=== PATIENT | male | born 1945 | race Caucasian/White ===

== ENCOUNTER → 2019-07-12 09:29 | Outpatient (CLI) | payer MEDICARE, SELFPAY ==
[2017-06-10 17:05] VITALS: BMI 29.2
[2019-07-12 11:13] LABS: Anion Gap 4 (5-15); BUN 18 mg/dL (7-18); BUN/Creat Ratio 15.8 RATIO (10-20); Calcium,Total 8.8 mg/dL (8.5-10.1); Chloride 105 mmol/L (98-107); Cholesterol 189 mg/dL (200); Creatinine, Serum 1.14 mg/dL (0.70-1.30); EST Glomerular Filtration Rate 67 mL/min (>60); Est Glom Filt Rate - Afr Amer 81 mL/min (>60); Glucose 98 mg/dL (74-106); High Density Lipoprotein 42 mg/dL; PSA,Total - Annual Screen 1.65 ng/mL (0.00-4.00); Potassium 3.7 mmol/L (3.5-5.1); Sodium Level 140 mmol/L (136-145); Triglycerides 110 mg/dL; Very Low Density Lipoprotein 22 mg/dL (5-40)
== END ==
PROVIDERS: Family Provider Family Medicine; PCP Family Medicine; Referring Provider Family Medicine; Visit Provider Family Medicine
DX: I10 Essential (primary) hypertension (principal); Z12.5 Encounter for screening for malignant neoplasm of prostate
CPT/HCPCS: 36415; 80048; 80061; 84153; G0103

== ENCOUNTER → 2020-08-09 09:48 | Outpatient (CLI) | payer MEDICARE, SELFPAY ==
[2017-06-10 17:05] VITALS: BMI 29.2
[2020-08-09 12:48] LABS: Anion Gap 4 (5-15); BUN 15 mg/dL (7-18); Calcium,Total 8.9 mg/dL (8.5-10.1); Chloride 105 mmol/L (98-107); Cholesterol 189 mg/dL (200); Creatinine, Serum 1.07 mg/dL (0.70-1.30); EST Glomerular Filtration Rate 72 mL/min (>60); Est Glom Filt Rate - Afr Amer 87 mL/min (>60); Glucose 88 mg/dL (74-106); High Density Lipoprotein 44 mg/dL; Potassium 3.6 mmol/L (3.5-5.1); Sodium Level 141 mmol/L (136-145); Triglycerides 88 mg/dL; Very Low Density Lipoprotein 18 mg/dL (5-40)
== END ==
PROVIDERS: PCP Family Medicine; Referring Provider Family Medicine; Visit Provider Family Medicine
DX: I10 Essential (primary) hypertension (principal); Z12.5 Encounter for screening for malignant neoplasm of prostate; L57.0 Actinic keratosis
CPT/HCPCS: 36415; 80048; 80061; 84153; 88305; G0103

== ENCOUNTER → 2020-08-09 15:11 | Outpatient (CLI) | payer MEDICARE, SELFPAY ==
--- NOTE | 2020-08-09 10:30 | LES_PTH ---
PATIENT: LYNN TOURE Jr. LOC: [facility] U#:[id number] AGE/SX: 79/M ROOM: RE08/09/[address]: Dr. Dakota Savage MD : 1945 BED: DIS: SPEC #: [id number] RECD: 08/09/20 14:55 STATUS: SIDDHARTH ADÁN #: [id number] FÉLIX: 08/09/20 10:[address]: Dakota Savage DEPT: SURGICAL PATHOLOGY RECD BY: Sarita Majano Tissues: Skin of chest Procedures: Surgery Specimen Level IV HEADER OPERATION: Skin biopsy of chest PRE-OP DIAGNOSIS: Rule out melanoma TISSUE SUBMITTED: Chest skin lesion MICROSCOPIC DIAGNOSIS Chest skin lesion, shave biopsy: Actinic keratosis with moderate atypia and focal verrucous features. Solar elastosis. Negative for malignancy. See comment. DONN:marcus 08/11/2020 COMMENT Melanocytic lesion is not seen. Correlation with clinical findings and appropriate follow up are necessary. MICROSCOPIC DESCRIPTION Slides are reviewed. GROSS DESCRIPTION Received in fixative is one container labeled with the patient's name and designated chest lesion. The specimen consists of a shave biopsy of strong-white to light brown skin measuring 1.5 x 1 x 0.1 cm. The specimen is inked and submitted entirely in one cassette. It will be sectioned at the time of embedding. / SJ:rg 08/10/20 TC:5 CPT: 17307
== END ==
PROVIDERS: PCP Family Medicine; Visit Provider Family Medicine
DX: L57.0 Actinic keratosis (principal)
CPT/HCPCS: 88305

== ENCOUNTER → 2020-09-21 15:42 | Outpatient (CLI) | payer MEDICARE, SELFPAY ==
[2017-06-10 17:05] VITALS: BMI 29.2
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
== END ==
PROVIDERS: PCP Family Medicine; Referring Provider Family Medicine; Visit Provider Family Medicine
DX: M79.641 Pain in right hand (principal)
CPT/HCPCS: 73130

== ENCOUNTER → 2020-11-16 15:18 | Outpatient (CLI) | payer MEDICARE, SELFPAY ==
--- NOTE | 2020-11-16 15:21 | US_ITS ---
INDICATION: L TESTICULAT SWELLING EXAMINATION: US Scrotum (Contents) TECHNIQUE: Realtime ultrasound of the testicles was performed with grayscale, Color Doppler and spectral Doppler analysis. COMPARISON: None. FINDINGS: RIGHT: TESTIS: Measures 3.4 x 2.9 x 2.1 cm. Normal in size and echotexture, without focal lesion. COLOR DOPPLER: Normal arterial flow present in the testicle with monophasic waveforms. EPIDIDYMIS: Normal in size and echotexture, with a 5 mm epididymal head cyst. [Normal color Doppler flow pattern in the epididymis. HYDROCELE: Small hydrocele.. VARICOCELE: None. LEFT: TESTIS: Measures 6 x 3 x 2.8 cm. Enlarged with normal echotexture, without focal lesion. COLOR DOPPLER: Normal arterial flow present in the testicle with monophasic waveforms. EPIDIDYMIS: Normal in size and echotexture, with a 6 mm epididymal head cyst. [Normal color Doppler flow pattern in the epididymis. HYDROCELE: None. VARICOCELE: None. OTHER: Large 6.2 cm scrotal fluid collection with low level internal echoes and a few septations consistent with spermatocele. 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 Enlarged left testicle with otherwise normal appearance and vascularity. Small bilateral epididymal head cysts. Electronically Signed: Dakota Chadwick MD at 16:35 EDT Tel , Service support ,
== END ==
PROVIDERS: PCP Family Medicine; Referring Provider Family Medicine; Visit Provider Family Medicine
DX: N50.89 Other specified disorders of the male genital organs (principal)
CPT/HCPCS: 76870; 93976

== ENCOUNTER → 2020-11-30 15:12 | Outpatient (CLI) | payer MEDICARE, SELFPAY ==
[2020-11-30 17:24] LABS: Hematocrit 34.8 % (40-54); Hemoglobin 11.8 g/dL (13.0-16.5); Mean Corp Hgb Conc 33.9 g/dL (32-36); Mean Corpuscular Hgb 32.3 pg (27.0-32.0); Mean Corpuscular Volume 95.3 fL (80-94); Mean Platelet Vol. 10.1 fl (6.2-12.0); POSITIVE MORPHOLOGY YES; Platelet Count 319 K/mm3 (150-450); RBC Distribution Width CV 18.6 % (11.6-14.6); RBC Distribution Width SD 65.1 fl (35.1-43.9); Red Blood Count 3.65 M/mm3 (4.6-6.2); White Blood Count 6.3 K/mm3 (4.4-11.0)
[2020-11-30 17:32] LABS: Scan Indicated on CBC? Y/N YES- FLAGS NOTED
[2020-11-30 17:58] LABS: Differential Comment SEE COMMENTS
[2020-11-30 18:04] LABS: Anion Gap 6 (5-15); BUN 19 mg/dL (7-18); BUN/Creat Ratio 18.8 RATIO (10-20); Calcium,Total 8.7 mg/dL (8.5-10.1); Chloride 103 mmol/L (98-107); Creatinine, Serum 1.01 mg/dL (0.70-1.30); EST Glomerular Filtration Rate 77 mL/min (>60); Est Glom Filt Rate - Afr Amer 93 mL/min (>60); Glucose 80 mg/dL (74-106); Potassium 3.6 mmol/L (3.5-5.1); Sodium Level 141 mmol/L (136-145)
== END ==
PROVIDERS: PCP Family Medicine; Visit Provider Urology
DX: Z01.812 Encounter for preprocedural laboratory examination (principal)
CPT/HCPCS: 36415; 80048; 85027

== ENCOUNTER → 2020-12-06 09:06 | Outpatient (CLI) | payer MEDICARE, SELFPAY ==
--- NOTE | 2020-12-06 09:16 | EKG12_ITS ---
Test Reason : PREOP Blood Pressure : / mmHG Vent. Rate : 074 BPM Atrial Rate : 074 BPM P-R Int : 130 ms QRS Dur : 084 ms QT Int : 378 ms P-R-T Axes : 007 -08 081 degrees QTc Int : 419 ms Normal sinus rhythm Normal ECG Confirmed by OLIVIA HUDSON, BRAD ([id number]), editor publications THERESE VICENTE ([id number]) on 12/08/2020 8:08:31 AM Referred By: aRmiro Andrew Confirmed By:BRAD BAKER MD
== END ==
PROVIDERS: PCP Family Medicine; Referring Provider Urology; Visit Provider Urology
DX: Z01.812 Encounter for preprocedural laboratory examination (principal); I10 Essential (primary) hypertension
CPT/HCPCS: 93005

== ENCOUNTER 2021-07-31 10:06 | Outpatient (CLI) | payer MEDICARE, SELFPAY ==
[2021-07-31 12:55] LABS: Anion Gap 5 (5-15); BUN 13 mg/dL (7-18); BUN/Creat Ratio 13.2 RATIO (10-20); Calcium,Total 8.8 mg/dL (8.5-10.1); Chloride 105 mmol/L (98-107); Cholesterol 191 mg/dL (200); Creatinine, Serum 0.99 mg/dL (0.70-1.30); EST Glomerular Filtration Rate 79 mL/min (>60); Est Glom Filt Rate - Afr Amer 95 mL/min (>60); Glucose 104 mg/dL (74-106); High Density Lipoprotein 51 mg/dL; PSA,Total - Annual Screen 1.84 ng/mL (0.00-4.00); Potassium 3.9 mmol/L (3.5-5.1); Sodium Level 140 mmol/L (136-145); Triglycerides 88 mg/dL; Very Low Density Lipoprotein 18 mg/dL (5-40)
== END 2021-07-31 23:59 | disposition short-term general hospital (02) ==
LOC: MFPLAB 10:10
PROVIDERS: PCP Family Medicine; Referring Provider Family Medicine; Visit Provider Family Medicine
DX: Z12.5 Encounter for screening for malignant neoplasm of prostate (principal); I10 Essential (primary) hypertension
CPT/HCPCS: 36415; 80048; 80061; 84153; G0103

== ENCOUNTER → 2022-08-01 | Outpatient (CLI) | payer MEDICARE, SELFPAY ==
[2022-08-01 15:25] LABS: Anion Gap 8 (5-15); BUN 13 mg/dL (7-18); BUN/Creat Ratio 13.7 RATIO (10-20); Calcium,Total 8.8 mg/dL (8.5-10.1); Chloride 105 mmol/L (98-107); Creatinine, Serum 0.95 mg/dL (0.70-1.30); EST Glomerular Filtration Rate 82 mL/min (>60); Est Glom Filt Rate - Afr Amer 99 mL/min (>60); Glucose 89 mg/dL (74-106); Potassium 3.7 mmol/L (3.5-5.1); Sodium Level 142 mmol/L (136-145)
[2022-08-01 16:30] LABS: Hepatitis C Antibody Non-Reactive (Nonreactive)
== END | disposition home or self-care (01) ==
LOC: MFPLAB 11:35
PROVIDERS: PCP Family Medicine; Referring Provider Family Medicine; Visit Provider Family Medicine
DX: Z11.59 Encounter for screening for other viral diseases (principal); I10 Essential (primary) hypertension
CPT/HCPCS: 36415; 80048; 86803

== ENCOUNTER → 2023-01-29 | Outpatient (CLI) | payer MEDICARE, SELFPAY ==
--- NOTE | 2023-01-29 10:47 | RAD_ITS ---
STUDY: X-RAY - RIGHT WRIST REASON FOR EXAM: Male, 77 years old. Right wrist pain. TECHNIQUE: 3 view(s) of the wrist were obtained. COMPARISON: Right hand views dated September 21, 2020. FINDINGS: Osteopenia. Mild arthrosis of the radiocarpal articulation. Mild arthrosis of the distal radioulnar articulation. Moderate arthrosis of the radial carpal row. Moderate arthrosis of the first CMC joint. Moderate arthrosis of the visualized MCP joints. Normal soft tissues. RAD/Wrist min 3 Views IMPRESSION: Osteopenia with osteoarthritic changes as described. No acute abnormality, chondrocalcinosis or erosive changes. Electronically Signed: Michael Meeks MD at 9:26 EDT ,
== END | disposition home or self-care (01) ==
PROVIDERS: PCP Family Medicine; Referring Provider Family Medicine; Visit Provider Family Medicine
DX: M25.531 Pain in right wrist (principal)
CPT/HCPCS: 73110

== ENCOUNTER → 2024-02-05 | Outpatient (CLI) | payer MEDICARE, SELFPAY ==
[2024-02-05 10:26] LABS: Anion Gap 4 (5-15); BUN 15 mg/dL (7-18); BUN/Creat Ratio 16.2 RATIO (10-20); Calcium,Total 8.8 mg/dL (8.5-10.1); Chloride 107 mmol/L (98-107); Cholesterol 179 mg/dL (200); Creatinine, Serum 0.93 mg/dL (0.70-1.30); EST Glomerular Filtration Rate 84 mL/min (>60); Est Glom Filt Rate - Afr Amer 101 mL/min (>60); Glucose 93 mg/dL (74-106); High Density Lipoprotein 42 mg/dL; Potassium 3.8 mmol/L (3.5-5.1); Sodium Level 141 mmol/L (136-145); Triglycerides 97 mg/dL; Very Low Density Lipoprotein 19 mg/dL (5-40)
== END | disposition home or self-care (01) ==
LOC: MFPLAB 08:03
PROVIDERS: PCP Family Medicine; Visit Provider Family Medicine
DX: I10 Essential (primary) hypertension (principal)
CPT/HCPCS: 36415; 80048; 80061

== ENCOUNTER → 2025-02-11 | Outpatient (CLI) | payer MEDICARE, SELFPAY ==
--- OUTSIDE RECORDS SUMMARY | 2025-02-11 08:11 | XMS RPT_ITS | CCD ---
Author Organization [facility] Inform ion Partnership [facility] Care Team Providers Care Director Of Customer Acquisition Name Role Phone TOBI BELLA Unavailable Unavailable TOBI BELLA Unavailable TOBI BELLA Attending Unavailable TOBI BELLA Primary Care Unavailable TOBI BELLA Attending Unavailable TOBI BELLA Primary Care Unavailable Dakota Savage Attending Unavailable Dakota Savage Primary Care Unavailable Allergies Allergy Classification Reported Allergen(s) Allergy Type Date of Onset Reaction(s) [facility] (1 source) [place] Drug Allergy 2017 [facility] Repository Medications Current Medications Medication Drug Class(es) Dates Sig (Normalized) Sig (Original) acetaminophen 500 mg oral tablet (2 sources) Start: 06-12-2017 take 1000 mg by mouth every eight hours Acetaminophen Active 1000 MG PO EVERY 8 HOURS June 12, 2017 12:00am Start: 05-19-2017 End: 06-12-2017 take 500-1000 mg by mouth every six hours as needed Acetaminophen Discontinued 500 - 1000 MG PO EVERY 6 HOURS NEEDED May 19, 2017 12:00am June 12, 2017 1:00pm aspirin 325 mg oral tablet (1 source) Platelet Aggregation Inhibitor, Nonsteroidal Anti-inflammatory Drug Start: 06-12-2017 take 325 mg by mouth twice daily at mealtime Aspirin Active 325 MG PO TWICE DAILY WITH MEALS June 12, 2017 12:00am citalopram 20 mg oral tablet (1 source) Serotonin Reuptake Inhibitor Start: 11-18-2014 take 10 mg by mouth once daily Citalopram Active 10 MG PO DAILY November 17, 2014 11:00pm hydroCHLOROthiazide 25 mg oral tablet (1 source) Thiazide Diuretic Start: 05-19-2017 take 25 mg by mouth once daily Hydrochlorothiazide Active 25 MG PO DAILY May 19, 2017 12:00am oxyCODONE hydrochloride 5 mg oral tablet (1 source) Opioid Agonist Start: 06-12-2017 take 5-10 mg by mouth every four hours as needed Oxycodone Active 5 - 10 MG PO EVERY 4 HOURS NEEDED 60 June 12, 2017 12:00am valsartan 160 mg oral tablet (1 source) Angiotensin 2 Receptor Pito Start: 05-19-2017 take 160 mg by mouth once daily Valsartan Active 160 MG PO DAILY May 19, 2017 12:00am Completed/Discontinued Medications Medication Drug Class(es) Dates Sig (Normalized) Sig (Original) traMADol hydrochloride 50 mg oral tablet (1 source) Opioid Agonist Start: 11-18-2014 End: 06-12-2017 take 50 mg by mouth every six hours as needed Tramadol Discontinued 50 MG PO EVERY 6 HOURS NEEDED November 17, 2014 11:00pm June 12, 2017 12:59pm Problems Active Problems Problem Classification Problem Date Documented Da te Episodic/Chronic Essential hypertension (1 source) Essential (primary) hypertension; Translations: [Essential (primary) hypertension] Onset: 03-05-2024 Chronic Neoplasms of unspecified nature or uncertain behavior (2 sources) Neoplasm of uncertain behavior of skin; Translations: [Neoplasm of uncertain behavior of skin] Onset: 08-25-2018 Episodic Unclassified (1 source) Unknown / UNK(Unknown) Onset: 01-06-2017 Past or Other Problems Problem Classification Problem Date Documented Da te Episodic/Chronic Unclassified (1 source) RT WRIST PAIN Onset: 01-06-2017 Results Test Name Value Interpretation Reference Range Facility Basic Metabolic Profile (BMP )on 02-05-2024 BUN/CRE 16.2 RATIO Normal - [facility] Comment on above: Performed By: #### L 500.2500, L500.4100 #### [facility] [address] [place], [address] CA,Total 8.8 mg/dL Normal 8.5-10.1 [facility] Comment on above: Performed By: #### L 500.2500, L500.4100 #### [facility] [address] [place], [address] Chloride [Moles/Vol] 107 mmol/L Normal 98-107 [facility] Comment on above: Performed By: #### L 500.2500, L500.4100 #### [facility] [address] [place], [address] CO2 [Moles/Vol] 30.0 mmol/L Normal 21.0-32.0 [facility] Comment on above: Performed By: #### L 500.2500, L500.4100 #### [facility] [address] [place], [address] Creatinine [Mass/Vol] 0.93 mg/dL Normal 0.70-1.30 [facility] Comment on above: Result Comment: The validity of the calculated GFR GFRAA in patients over 70 years has not been determined. Clinical correlation is essential. Performed By: #### L 500.2500, L500.4100 #### [facility] [address] [place], [address] EST GFR - AA 101 mL/min Normal >60 [facility] Comment on above: Result Comment: Afri can Estonian GFR Calc Performed By: #### L 500.2500, L500.4100 #### [facility] [address] [place], [address] GAP 4 Low 5-15 [facility] Comment on above: Performed By: #### L 500.2500, L500.4100 #### [facility] [address] [place], [address] GFR/1.73 sq M.predicted among non-blacks MDRD (S/P/Bld) [Vol rate/Area] 84 mL/min/{1.73_m2} Normal >60 [facility] Comment on above: Result Comment: Non- GFR Calc Performed By: #### L 500.2500, L500.4100 #### [facility] [address] [place], [address] Glucose [Mass/Vol] 93 mg/dL Normal 74-106 [facility] Comment on above: Performed By: #### L 500.2500, L500.4100 #### [facility] [address] [place], [address] Potassium [Moles/Vol] 3.8 mmol/L Normal 3.5-5.1 [facility] Comment on above: Performed By: #### L 500.2500, L500.4100 #### [facility] [address] [place], [address] Sodium [Moles/Vol] 141 mmol/L Normal 136-145 [facility] Comment on above: Performed By: #### L 500.2500, L500.4100 #### [facility] [address] [place], [address] Urea nitrogen [Mass/Vol] 15 mg/dL Normal 7-18 [facility] Comment on above: Performed By: #### L 500.2500, L500.4100 #### [facility] [address] [place], [address] Lipid Profileon 02-05-2024 Cholesterol [Mass/Vol] 179 mg/dL Normal 200 [facility] Comment on above: Result Comment: <200 mg/dL Desirable 200-240 mg/dL Borderline >240 mg/dL High Risk Performed By: #### L 500.2500, L500.4100 #### [facility] [address] [place], [address] Cholesterol in HDL [Mass/Vol] 42 mg/dL Normal [facility] Comment on above: Result Comment: The drugs N-Acetylcysteine and Metamizole may falsely depress this assay. Reference Range HDL <40 mg/dL Low HDL Cholesterol HDL >or= 60 mg/dL High HDL Cholesterol Performed By: #### L 500.2500, L500.4100 #### [facility] [address] [place], [address] Cholesterol in LDL [Mass/Vol] 118 mg/dL Normal 0-130 [facility] Comment on above: Performed By: #### L 500.2500, L500.4100 #### [facility] [address] [place], [place], [address] Cholesterol in VLDL [Mass/Vol] 19 mg/dL Normal 5-40 [facility] Comment on above: Performed By: #### L 500.2500, L500.4100 #### [facility] [address] [place], [address] Triglyceride [Mass/Vol] 97 mg/dL Normal [facility] Comment on above: Result Comment: The drugs N-Acetylcysteine and Metamizole may falsely depress this assay. Serum Triglycerides Reference Interval Normal <150 mg/dL Borderline high 150 - 199 mg/dL High 200 - 499 mg/dL Very High > or = 500 mg/dL Performed By: #### L 500.2500, L500.4100 #### [facility] [address] [place], [address] Basophil percentageOrdered B y: Dr. Savage on 08-01-2022 Chloride [Moles/Vol] 105 mmol/L 98-107 [facility] Glucose [Mass/Vol] 89 mg/dL 74-106 [facility] Potassium [Moles/Vol] 3.7 mmol/L 3.5-5.1 [facility] Sodium [Moles/Vol] 142 mmol/L 136-145 [facility] Laboratory - Chemistry and C hemistry - challengeOrdered By: Dr. Savage on 08-01-2022 CO2 [Moles/Vol] 29.0 mmol/L 21.0-32.0 [facility] Urea nitrogen/Creatinine [Mass ratio] 13.7 mg/mg 10-20 [facility] No Panel InformationOrdered By: Dr. Savage on 08-01-2022 Estimated GFR (MDRD) Amer 99 mL/min >60 [facility] Comment on above: GFR Calc Estimated GFR (MDRD) Non-Af Amer 82 mL/min >60 [facility] Comment on above: Non- GFR Calc Hepatitis C Antibody Non-Reactive Nonreactive [facility] Comment on above: Non Reactive: < 0.8 Equivocal: >/= 0.8 to < 1.0 Reactive: >/= 1.0The CDC recommends that a reactive/equivocal HCV antibody result be followed up by the HCV Nucleic Acid Amplificationtest (870376) Serum or plasma calcium wilton urement (mass/volume)Ordered By: Dr. Savage on 08-01-2022 Calcium [Mass/Vol] 8.8 mg/dL 8.5-10.1 [facility] Serum or plasma creatinine m easurement (mass/volume)Ordered By: Dr. Savage on 08-01-2022 Creatinine [Mass/Vol] 0.95 mg/dL 0.70-1.30 [facility] Comment on above: The validity of the calculated GFR & GFRAA in patients over 70 years has not been determined. Clinical correlation is essential. Serum or plasma urea nitroge n measurement (mass/volume)Ordered By: Dr. Savage on 08-01-2022 Urea nitrogen [Mass/Vol] 13 mg/dL 7-18 [facility] Thin prep Papanicolaou smear with manual screeningOrdered By: Dr. Savage on 08-01-2022 Thin prep Papanicolaou smear with manual screening 8 5-15 [facility] Final Surgical Pathology Rep [facility] 08-27-2018 Final Surgical Pathology Report . Pathology Reports Accession: Collected Date/Time: Received Date/Time: Pathologist: [id number] 08/25/2018 13:50 EST 08/26/2018 14:22 EST DO DAVE LEUNG Final Surgical Pathology Report DIAGNOSIS: SKIN EXCISION, UPPER CHEST -- SOLAR LENTIGO. COMMENT: [facility] [place] [id number] CLINICAL INFORMATION: NEOPLASM OF UNCERTAIN BEHAVIOR OF SKIN SPECIMEN: A SKIN- UPPER CHEST LESION GROSS DESCRIPTION: Received in formalin labeled chest is a 0.2 cm dark brown circular skin which has been excised to a greatest depth of 0.2 cm. No discrete lesion is identified. The specimen is inked and submitted in toto in one cassette. Dictated by Izabella SHEN ([facility]) MICROSCOPIC DESCRIPTION: Slides reviewed. Electronically Signed by Pathology Report verified by [facility] Electronically signed by DAVE LEUNG DO Sign out Date: 08/27/2018 13:12 Performing Lab: [facility], [address] [place] [address] [facility] Normal [facility] ([place]) Comment on above: Performed By: #### S PFR #### [address] [address] Jamarcus 10-09-2017 Potassium molar conc 3.8 mmol/L Normal 3.5-5.1 [facility] ([place]) Comment on above: Performed By: #### K #### [facility] [address] [place], [place] [address] XR WRIST COMPLETE RIGHTon XR WRIST COMPLETE RIGHT ORIGINALXR WRIST COMPLETE RIGHT CLINICAL STATEMENT: rt wrist pain COMPARISON: None FINDINGS:3 images of the right wrist demonstrate advanced degenerative change in the radial aspect of the intercarpal joints. No fracture or dislocation is identified. The soft tissue structures are unremarkable. IMPRESSION:Focal degenerative change in the intercarpal joints Interpreted By: Monique Youngreliminary Report By: Monique Young MDElectronically Signed By: Monique Young MD Dictated Date: 01/06/2017 12:02:14 PM Prelim Date: 01/06/2017 12:02:14 PM Sign Date: 01/06/2017 12:02:38 PM Normal [facility] Encounters Encounter Date Encounter Type Care Provider Facility Start: 02-05-2024 End: 02-05-2024 [place]ulatory [facility] [place] Facility:[facility] Start: 08-01-2022 End: 08-01-2022 ambulatory [facility] Work Phone: Start: 08-01-2022 End: 08-01-2022 Patient encounter procedure [facility] Start: 08-25-2018 End: 08-30-2018 Patient encounter procedure TOBI BELLA Facility:[facility] Start: 10-09-2017 End: 10-10-2017 Patient encounter procedure TOBI BELLA Facility:[facility] Start: 01-06-2017 End: 01-07-2017 Ambulatory TOBI BELLA [facility] Immunizations Immunization Date Immunization Notes Care Provider Gato georges 03-30-2017 influenza, seasonal, injectable [facility] Payers Date Payer Category Payer Self-pay [id number] 2016 Medicare [id number] 1945 Unknown [id number] 1945 Unknown [id number] Unknown [id number] Social History Date Type Detail Facility [facility]: [facility] Start: 1945 Sex Assigned At Male [facility] Medical Equipment Procedure Code Equipment Code Equipment Origin al Text Equipment Identifier Dates COLLARLESS POROU S STEM FDA Start: 06-10-2017 MODULAR HEAD COMPONENT FDA Start: 06-10-2017 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 Start: 06-10-2017 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 FDA Start: 06-10-2017 Evaluation note Note Date & Type Note Facility Evaluation note No assessment information availa ble [facility] Work Phone: Summary Purpose Family History No Family History Records FoundNo Family History Records FoundNo Family History Records Found Advance Directives No Advanced Directives Records Found Advance Directive Response Recorded Date/ Time Advance Directives Yes November 18, 5 12:16pm Living Will Yes June 11, 017 11:13am Power of Heel Builder Yes 2017 11:13am Additional Source Comments (unrecognized sect ion and content) No Status Records FoundNo Status Records FoundNo Status Records Found INFORMATION SOURCE (unrecogn ized section and content) DATE CREATED AUTHOR 12/24/2017 [facility] [employer] [facility] DATE CREATED AUTHOR AUTHOR'S ORGANIZ ATION 08/31/2018 [facility] [employer] [facility] ([place]) DATE CREATED AUTHOR AUTHOR'S ORGANIZ ATION 03/07/2024 [facility] Care Teams (unrecognized sec tion and content) Team Status: Active Member Role Status Dates Dr. Teo Savage MD Family Provider Active Dr. Teo Savage MD Primary Care Provider Activ e Team Status: Inactive Member Role Status Dates Dr. Teo Savage MD Primary Care Provider, Attending Provider, Referring Provider Active Goals (unrecognized section and content) Goals may be documented in a n alternate section FOR RECORDS PERTAINING TO PATIENTS WHO ARE OR HAVE BEEN ENROLLED IN A CHEMICAL DEPENDENCY/SUBSTANCEABUSE PROGRAM, SOME INFORMATION MAY BE OMITTED. This clinical summary was aggregated from multiple sources. Caution should be exercised in using it in the provision of clinical care. This summary normalizes information from multiple sources, and as a consequence, information in this document may materially change the coding, format and clinical context of patient data. In addition, data may be omitted in some cases. CLINICAL DECISIONS SHOULD BE BASED ON THE PRIMARY CLINICAL RECORDS. [facility]. provides no warranty or guarantee of the accuracy or completeness of information in this document.
[2025-02-11 10:53] LABS: Anion Gap 12 (5-15); BUN 13 mg/dL (4-19); BUN/Creat Ratio 13.3 RATIO (10-20); Calcium,Total 9.2 mg/dL (7.6-11.0); Carbon Dioxide 28.2 mmol/L (21.0-32.0); Chloride 102 mmol/L (98-108); Cholesterol 165 mg/dL (<=200); Glucose 94 mg/dL (70-99); Low Density Lipoprotein Calc. 102 mg/dL; Potassium 3.6 mmol/L (3.3-5.1); Triglycerides 83 mg/dL; Very Low Density Lipoprotein 17 mg/dL (5-40); cholesterol:hdl ratio screen 3.54
== END | disposition home or self-care (01) ==
PROVIDERS: PCP Family Medicine; Referring Provider Family Medicine; Visit Provider Family Medicine
DX: I10 Essential (primary) hypertension (principal)
CPT/HCPCS: 36415; 80048; 80061

== ENCOUNTER → 2025-04-14 | Outpatient (CLI) | payer MEDICARE, SELFPAY ==
--- NOTE | 2025-04-14 11:22 | RAD_ITS ---
PROCEDURE: HIP, UNI W/ PELVIS 2-3 VIEWS 04/14/2025 REASON FOR EXAM: PAIN LEFT TECHNIQUE: Procedure Code: RADHP Modality: DX Procedure: HIP, UNI W/ PELVIS 2-3 VIEWS Laterality: Left hip COMPARISON: None FINDINGS: Bones: No fracture. Joints: Status post right total hip replacement. Moderate degree of joint space narrowing of the left hip joint. No fracture or subluxation. Soft tissues: Vascular calcifications. 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 Reading Location: [place] [address]
--- NOTE | 2025-04-14 11:22 | RAD_ITS ---
PROCEDURE: LUMBAR SPINE 2 OR 3 VIEWS 04/14/2025 REASON FOR EXAM: PAIN Low back pain and left hip pain. TECHNIQUE: Procedure Code: RADSPLL Modality: DX Procedure: LUMBAR SPINE 2 OR 3 VIEWS COMPARISON: None FINDINGS: Vertebrae: Minimal anterior spondylosis at the L2-L3 and L3-L4 levels. Discs: Mild degree of disc space narrowing at the L2-L3 level. Alignment: No significant scoliosis. Other: Atherosclerotic plaques of the abdominal aorta. RAD/Lumbar Spine 2 or 3 Views IMPRESSION: Mild degree of degenerative changes. Reading Location: [place] [address]
--- NOTE | 2025-04-14 11:22 | RAD_ITS ---
PROCEDURE: LUMBAR SPINE 2 OR 3 VIEWS 04/14/2025 REASON FOR EXAM: PAIN Low back pain and left hip pain. TECHNIQUE: Procedure Code: RADSPLL Modality: DX Procedure: LUMBAR SPINE 2 OR 3 VIEWS COMPARISON: None FINDINGS: Vertebrae: Minimal anterior spondylosis at the L2-L3 and L3-L4 levels. Discs: Mild degree of disc space narrowing at the L2-L3 level. Alignment: No significant scoliosis. Other: Atherosclerotic plaques of the abdominal aorta. RAD/Lumbar Spine 2 or 3 Views IMPRESSION: Mild degree of degenerative changes. Reading Location: [place] [address]
--- NOTE | 2025-04-14 11:22 | RAD_ITS ---
PROCEDURE: HIP, UNI W/ PELVIS 2-3 VIEWS 04/14/2025 REASON FOR EXAM: PAIN LEFT TECHNIQUE: Procedure Code: RADHP Modality: DX Procedure: HIP, UNI W/ PELVIS 2-3 VIEWS Laterality: Left hip COMPARISON: None FINDINGS: Bones: No fracture. Joints: Status post right total hip replacement. Moderate degree of joint space narrowing of the left hip joint. No fracture or subluxation. Soft tissues: Vascular calcifications. 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 Reading Location: [place] [address]
== END | disposition home or self-care (01) ==
LOC: MTRAD 11:20
PROVIDERS: PCP Family Medicine; Referring Provider Family Medicine; Visit Provider Family Medicine
DX: M54.40 Lumbago with sciatica, unspecified side (principal); M25.552 Pain in left hip
CPT/HCPCS: 72100; 73502

== ENCOUNTER 2025-04-25 13:00 | Outpatient (RCR) | payer MEDICARE, SELFPAY ==
--- NOTE | 2025-04-25 09:53 | HP.PTEVAL_ITS ---
Patient's Visit Information Visit Information Visit Information: LYNN TOURE Jr. is a 79 year old M referred to Physical Therapy by Dr. Dakota Savage MD with a diagnosis of L hip piriformis pain, lumbar DDD. Date of Evaluation: 04/22/25 Physical Therapist: Aryan Coats DPT Visit Plan Frequency: 2x /Week Duration: 4 Weeks Plan: Pt's symptoms do not exactly fall into piriformis syndrome, but also not all of his symptoms fall into lumbar radiculopathy. Pt. has high level of symptoms with walking greater than 30-50'. to the point of needing to sit down. I will try and do some flexion and piriformis stretching to see if this helps. Due to the severity of his symptoms if not improving I will suggest that he return to physician. 1) flexion stretching, L piriformis stretching Subjective Subjective: Pt. is here today for his initial evaluation with diagnosis of L piriformis pain, lumbar DDD. Pt. reports having high levels of pain for ~2 weeks. No mech of injury. Pt. reports the only position that he can get comfortable in is in his reclining chair with his L leg brought up towards his chest. Pt. reports pain that starts in his buttock that extends down his L leg to his calf. Pt. reports some N/T at lateral L calf as well. Not much back pain. Pt. reports trying some crossed legged stretching with some light relief, but no t much. He has done pain meds which did nothing, he did prednisone which also did not help. Pt. did have an Xray no recent fractures, but did show some DDD. History of R sided hip replacement. Pt. is hopeful to reduce symptoms in order to get back to all household activities without limtiations. Pain R gluteal region: Pain Intensity (Out of 10): 8 Pain Intensity Range: 6 and 10 L calf: Pain Intensity (Out of 10): 3 Pain Intensity Range: 2 and 10 Objective Objective: POSTURE: Pt. has a slight flexed posture. Pt. has slight wt. shift to R side. Pt. is able to correct posture without much change in his symptoms. PALPATION: Pt. has marked tenderness at L gluteal region, L piriformis as well. Pt. was vey tender with palpation of these areas, to the point he is severely guarding. NEURO: Pt. has decreased L lateral calf sensation. Normal DTR throughout BLEs. Pt. is able to rise on heels and toes. ROM: LUMBAR SPINE: flexion nil/min loss mild increase NW. ext mod loss increase NW, SB min loss bilat NE, rotation min loss bilat increase NW to L side. Pt. has marked HS tightness bilat. Pt. has tightness in L hip ER, normal IR. Pt. reports feeling a stretch with hip ER motions. MMT: Pt. has 5/5 distal LE strength. COre strength poor. L hip: abd 4/5 mild increase NW, ER 4/5 mild increase NW. GAIT: Pt. has severe pain with walking greater than 50'+. Pt. had to sit down several times to tolerate walking. He would have minimal pain with initial standing, but severe pain with in 30-50' requiring him to sit. Pt's pain would reduce with in a few minutes. But would return with walking. STAIRS: Pt. has marked increased pain with all attempts. Special Tests Lumbar Standing: Flexion - Mechanical Response: No effect Lumbar Standing: Flexion - Symptoms During Testing: Decreases Lumbar Standing: Flexion - Symptoms After Testing: No better Lumbar Standing: Extension - Mechanical Response: No effect Lumbar Standing: Extension - Symptoms During Testing: Increases Lumbar Standing: Extension - Symptoms After Testing: Worse Lumbar Standing: Right Side Glides - Mechanical Response: No effect Lumbar Standing: Right Side [place] - Symptoms During Testing: No effect Lumbar Standing: Right Side [place] - Symptoms After Testing: No effect Lumbar Standing: Left Side [place] - Mechanical Response: No effect Lumbar Standing: Left Side [place] - Symptoms During Testing: No effect Lumbar Standing: Left Side [place] - Symptoms After Testing: No effect Lumbar Lying: Flexion - Mechanical Response: No effect Lumbar Lying: Flexion - Symptoms During Testing: Decreases Lumbar Lying: Flexion - Symptoms After Testing: Better Lumbar Lying: Extension - Mechanical Response: No effect Lumbar Lying: Extension - Symptoms During Testing: Increases Lumbar Lying: Extension - Symptoms After Testing: Worse Lumbar Static: Slouched Sit - Mechanical Response: No effect Lumbar Static: Slouched Sit - Symptoms During Testing: No effect Lumbar Static: Slouched Sit - Symptoms After Testing: No effect Lumbar Static: Sitting Erect - Mechanical Response: No effect Lumbar Static: Sitting Erect - Symptoms After Testing: No effect Lumbar Static:Lying Prone in Extension - Mechanical Response: No effect Lumbar Static: Lying Prone in Extension - Sx During Testing: Increases Lumbar Static: Lying Prone in Extension - Sx After Testing: Worse L Hip Scour: Negative L Hip Lorna - IT Band: Negative Balance/Special Test Scores Oswestry Low Back Score: 23 Goals Goal 1:: LTG: Pt. to be able to sleep without increase in symptoms L hip/lumbar spine. Goal Time Frame: 4-6 Weeks Goal 2:: STG: Pt. be able to walk for 5 minutes without increase in L gluteal pain. Goal Time Frame: 2-4 Weeks Goal 3:: LTG: Pt. to have increased core strength to fair+ allowing for increased tolerance to walking. Goal Time Frame: 4-6 Weeks Goal 4:: LTG: Pt. to complete all ADLs without increase in L gluteal pain. Goal Time Frame: 4-6 Weeks Rehabilitation Potential Physical Therapy Diagnosis: Pt. has signs and symptoms consistent with with L hip piriformis pain and lumbar DDD. Pt. has high levels of pain limiting ability to ambulate and complete functional mobility. His pain is in hip and lumbar spine is very painful, limiting all of his mobility over a few minutes. Pt would benefit from PT to address his pain and increased his mobility. Rehabilitation Potential: Fair Anticipated Interventions Patient/Client Instruction: Educate patient on: Condition, Plan of Care, Risk Factors and Benefits of Fitness Program For the Purpose of:: To improve safety, To foster healthy habits, To improve decision making, To facilitate caregiver knowledge, To improve self management, To prevent re-injury and To improve ability to perform tasks related to life management Therapeutic Exercise to Include: Strength training, Power training, Body mechanics, Flexibilty training, Passive ROM, Active ROM and Dynamic Lumbar Stabilization For the Purpose of:: To decrease pain, To increase ROM, To improve nutrient delivery to tissue, To improve ability of physical actions for home/community/work/leisure, To improve gait and locomotor functions, To improve health of tissue, To decrease soft tissue restriction and To increase flexibility/ROM Manual Therapy Techniques to Include: Mobilization For the Purpose of:: To decrease pain, To decrease swelling/inflammation, To increase ROM, To improve nutrient delivery to tissue and To increase oxygenation perfusion Text: Thank you for the opportunity to evaluate your patient. For Medicare and Medicare HMO plans, please review the plan of care and approve it. It will need to be FAXED BACK to us at [phone] for Medicare purposes. For Medicare only, by signing this I certify the plan of care. Please let me know if there are questions or concerns regarding this plan of care. Physician Signature: Date:
--- NOTE | 2025-05-02 12:36 | HP.PTREVAL ---
Re-Evaluation Intro: Dr. Dakota Savage MD, It has been my pleasure to treat LYNN TOURE Jr. over the last 2 visits for L hip piriformis pain, lumbar DDD. Please see the progress note below for an update on the physical therapy plan of care! Subjective Subjective: Pt. arrived today in a lot of pain as he did last visit. Pt. reports pain in his L gluteal region. The only to have some relief is with his L hip in marked flexed positioning. 8/10 pain upon arriving today. Objective Objective/Function: Pt. continues to be in marked pain with walking greater than 75'. Pt. reports having to sit due to pain being so severe. Pt. reports stretching frequently at home x10 per day with both SKTC and piriformis stretching, no relief. His pain is not super consistent with either piriformis pain or radicular symptoms. He does have high levels of pain limiting much exercise and tolerance. He is very limited inhis ability to ambulate and is effecting his ability to sleep as well. I did recommend that he call physician due to the severity of his symptoms. Pt. consents. Plan Plan Plan: Pt. to call physician due to severity of his pain. We have tried both lumbar directional movements without success and piriformis strething without much change in symptoms. He is going to call physician to determine how to proceed. Balance/Gait/Functional tests Balance/Special Test Scores Oswestry Low Back Score: 23 Goals Goals Goal 1:: LTG: Pt. to be able to sleep without increase in symptoms L hip/lumbar spine. Goal Time Frame: 4-6 Weeks Goal 2:: STG: Pt. be able to walk for 5 minutes without increase in L gluteal pain. Goal Time Frame: 2-4 Weeks Goal 3:: LTG: Pt. to have increased core strength to fair+ allowing for increased tolerance to walking. Goal Time Frame: 4-6 Weeks Goal 4:: LTG: Pt. to complete all ADLs without increase in L gluteal pain. Goal Time Frame: 4-6 Weeks Anticipated Interventions Anticipated Interventions Patient/Client Instruction: Educate patient on: Condition, Plan of Care, Risk Factors and Benefits of Fitness Program For the Purpose of:: To improve safety, To foster healthy habits, To improve decision making, To facilitate caregiver knowledge, To improve self management, To prevent re-injury and To improve ability to perform tasks related to life management Therapeutic Exercise to Include: Strength training, Power training, Body mechanics, Flexibilty training, Passive ROM, Active ROM and Dynamic Lumbar Stabilization For the Purpose of:: To decrease pain, To increase ROM, To improve nutrient delivery to tissue, To improve ability of physical actions for home/community/work/leisure, To improve gait and locomotor functions, To improve health of tissue, To decrease soft tissue restriction and To increase flexibility/ROM Manual Therapy Techniques to Include: Mobilization For the Purpose of:: To decrease pain, To decrease swelling/inflammation, To increase ROM, To improve nutrient delivery to tissue and To increase oxygenation perfusion Re-Evaluation Ending Re-evaluation ending: Please do not hesitate to contact me at [phone] by phone or if you have questions or concerns regarding this new plan of care! Sincerely, DIYA HarrisonT
== END 2025-04-25 19:00 | disposition home or self-care (01) ==
LOC: PT 13:00
PROVIDERS: PCP Family Medicine; Referring Provider Family Medicine; Visit Provider Family Medicine
DX: M25.559 Pain in unspecified hip (principal); M51.369 Other intervertebral disc degeneration, lumbar region without mention of lumbar back pain or lower extremity pain; G57.00 Lesion of sciatic nerve, unspecified lower limb
CPT/HCPCS: 97110; 97161

== ENCOUNTER → 2025-05-18 | Outpatient (CLI) | payer MEDICARE, SELFPAY ==
--- OUTSIDE RECORDS SUMMARY | 2025-05-18 06:46 | XMS RPT_ITS | CCD ---
Author Organization [facility] Care Team Providers Care Mobile Marketing Specialist Name Role Phone TOBI BELLA Unavailable Unavailable TOBI BELLA Unavailable TOBI BELLA Attending Unavailable TOBI BELLA Primary Care Unavailable TOBI BELLA Attending Unavailable TOBI BELLA Primary Care Unavailable Hussein HUDSON, Dr. Duncan Primary Care Provider Hussein HUDSON, Dr. Duncan Attending Provider Hussein HUDSON, Dr. Duncan Referring Provider [phone] Dakota Savage Referring Unavailable Dakota Savage Primary Care Unavailable Dakota Savage Attending Unavailable Dakota Savage Referring Unavailable Dakota Savage Primary Care Unavailable Dakota Savage Attending Unavailable Dakota Savage Referring Unavailable Dakota Savage Primary Care Unavailable Dakota Savage Attending Unavailable Dakota Savage Attending Unavailable Dakota Savage Referring Unavailable Dakota Savage Primary Care Unavailable Allergies Allergy Classification Reported Allergen(s) Allergy Type Date of Onset Reaction(s) Facility (2 sources) Etodolac Drug Allergy 2017 Other [facility] Comment on above: increases BP (1 source) Etodolac Drug Allergy 2017 [facility] Repository Medications Current Medications Medication Drug Class(es) Dates Sig (Normalized) Sig (Original) acetaminophen 500 mg oral tablet (4 sources) Start: 06-12-2017 take 2 tablets by mouth every eight hours Acetaminophen 500 MG tablet Active 1000 mg PO EVERY 8 HOURS 30 0 June 12, 2017 1:00am Start: 06-12-2017 take 1000 mg by mout h every eight hours Acetaminophen Active 1000 MG PO EVERY 8 HOURS June 12, 2017 12:00am Start: 05-19-2017 End: 06-12-2017 take 500-1000 mg by mouth every six hours as needed for pain Acetaminophen 500 MG tablet Discontinued 500 - 1000 mg PO EVERY 6 HOURS NEEDED as needed for Pain May 19, 2017 1:00am June 12, 2017 2:00pm aspirin 325 mg oral tablet (2 sources) Platelet Aggregation Inhibitor, Nonsteroidal Anti-inflammatory Drug Start: 06-12-2017 take 1 tablet by mouth twice daily at mealtime Aspirin 325 MG tablet Active 325 mg PO TWICE DAILY WITH MEALS 30 0 June 12, 2017 1:00am citalopram 20 mg oral tablet (2 sources) Serotonin Reuptake Inhibitor Start: 11-18-2014 take 10 mg by mouth once daily Citalopram 20 MG tablet Active 10 mg PO DAILY November 18, 2014 12:00am Start: 11-18-2014 take 10 mg by mouth once daily Citalopram Active 10 MG PO DAILY November 17, 2014 11:00pm hydroCHLOROthiazide 25 mg oral tablet (2 sources) Thiazide Diuretic Start: 05-19-2017 take 1 tablet by mouth once daily Hydrochlorothiazide 25 MG tablet Active 25 mg PO DAILY May 19, 2017 1:00am B/P oxyCODONE hydrochloride 5 mg oral tablet (2 sources) Opioid Agonist Start: 06-12-2017 take 5-10 mg by mouth every four hours as needed for pain Oxycodone 5 MG tablet Active 5 - 10 mg PO EVERY 4 HOURS NEEDED as needed for Mod-Severe Pain (4-10/10) 60 0 June 12, 2017 1:00am valsartan 160 mg oral tablet (2 sources) Angiotensin 2 Receptor Pito Start: 05-19-2017 take 1 tablet by mouth once daily Valsartan 160 MG tablet Active 160 mg PO DAILY May 19, 2017 1:00am B/P Completed/Discontinued Medications Medication Drug Class(es) Dates Sig (Normalized) Sig (Original) traMADol hydrochloride 50 mg oral tablet (2 sources) Opioid Agonist Start: 11-18-2014 End: 06-12-2017 take 1 tablet by mouth every six hours as needed for pain Tramadol 50 MG tablet Discontinued 50 mg PO EVERY 6 HOURS NEEDED as needed for Pain November 18, 2014 12:00am June 12, 2017 1:59pm Problems Active Problems Problem Classification Problem Date Documented Da te Episodic/Chronic Essential hypertension (1 source) Essential (primary) hypertension; Translations: [Essential (primary) hypertension] Onset: 02-16-2025 Chronic Neoplasms of unspecified nature or uncertain behavior (2 sources) Neoplasm of uncertain behavior of skin; Translations: [Neoplasm of uncertain behavior of skin] Onset: 08-25-2018 Episodic Spondylosis; intervertebral disc disorders; other back problems (2 sources) Lumbago with sciatica, unspecified side; Translations: [Lumbago with sciatica, unspecified side] Onset: 04-28-2025 Episodic Unclassified (1 source) Unknown / UNK(Unknown) Onset: 01-06-2017 Past or Other Problems Problem Classification Problem Date Documented Da te Episodic/Chronic Unclassified (1 source) RT WRIST PAIN Onset: 01-06-2017 Results Test Name Value Interpretation Reference Range Facility Re-Evaluation - PT (1)on Re-Evaluation - PT (1) [facility] [address] [place] [address] / REEVALUATION / MEDICARE RECERTIFICATION PHYSICAL THERAPY MR#: [id number] Acct: [id number] Name: LYNN TOURE JrYael Rep #: [id number] : 1945 79 From: Aryan Coats DPT Referring Dr.: Dr. Dakota Savage MD Status:REG RCR Insurance: MMO MEDICARE SELF PAY INSURANCE Re-Evaluation Intro: Dr. Dakota Savage MD, It has been my pleasure to treat LYNN TOURE JrYael over the last 2 visits for L hip piriformis pain, lumbar DDD. Please see the progress note below for an update on the physical therapy plan of care! Subjective Subjective: Pt. arrived today in a lot of pain as he did last visit. Pt. reports pain in his L gluteal region. The only to have some relief is with his L hip in marked flexed positioning. 8/10 pain upon arriving today. Objective Objective/Function: Pt. continues to be in marked pain with walking greater than 75'. Pt. reports having to sit due to pain being so severe. Pt. reports stretching frequently at home x10 per day with both SKTC and piriformis stretching, no relief. His pain is not super consistent with either piriformis pain or radicular symptoms. He does have high levels of pain limiting much exercise and tolerance. He is very limited inhis ability to ambulate and is effecting his ability to sleep as well. I did recommend that he call phys devoraan due to the severity of his symptoms. Pt. consents. Plan Plan Plan: Pt. to call physician due to severity of his pain. We have tried both lumbar directional movements without success and piriformis strething without much change in symptoms. He is going to call physician to determine how to proceed. Balance/Gait/Function al tests Balance/Special Test Scores Oswestry Low Back Score: 23 Goals Goals Goal 1:: LTG: Pt. to be able to sleep without increase in symptoms L hip/lumbar spine. Goal Time Frame: 4-6 Weeks Goal 2:: STG: Pt. be able to walk for 5 minutes without increase in L gluteal pain. Goal Time Frame: 2-4 Weeks Goal 3:: LTG: Pt. to have increased core strength to fair+ allowing for increased tolerance to walking. Goal Time Frame: 4-6 Weeks Goal 4:: LTG: Pt. to complete all ADLs without increase in L gluteal pain. Goal Time Frame: 4-6 Weeks Anticipated Interventions Anticipated Interventions Patient/Client Instruction: Educate patient on: Condition, Plan of Care, Risk Factors and Benefits of Fitness Program For the Purpose of:: To improve safety, To foster healthy habits, To improve decision making, To facilitate caregiver knowledge, To improve self management, To prevent re-injury and To improve ability to perform tasks related to life management Therapeutic Exercise to Include: Strength training, Power training, Body mechanics, Flexibilty training, Passive ROM, Active ROM and Dynamic Lumbar Stabilization For the Purpose of:: To decrease pain, To increase ROM, To improve nutrient delivery to tissue, To improve ability of physical actions for home/community/work/l eisure, To improve gait and locomotor functions, To improve health of tissue, To decrease soft tissue restriction and To increase flexibility/ROM Manual Therapy Techniques to Include: Mobilization For the Purpose of:: To decrease pain, To decrease swelling/inflammation , To increase ROM, To improve nutrient delivery to tissue and To increase oxygenation perfusion Re-Evaluation Ending Re-evaluation ending: Please do not hesitate to contact me at [phone] by phone or if you have questions or concerns regarding this new plan of care! Sincerely, Aryan Coats DPT 05/02/25 1236 CC: Dr. Dakota Savage MD CLS Signed For Medicare only, by signing this I certify the plan of care. Physicians Signature Date Normal [facility] Inital Evaluation (1) - PTon 04-25-2025 Inital Evaluation (1) - PT [facility] [address] [place] [address] / REHABILITATION SERVICES INITIAL EVALUATION MR#: [id number] Acct: [id number] Name: MESFINLYNN Keri Blevins Rep #: [id number] : 1945 79 From: Aryan Coats DPT Referring Dr.: Dr. Dakota Savage MD Status: REG RCR Insurance: O MEDICARE SELF PAY INSURANCE Patient's Visit Information Visit Information Visit Information: LYNNKomal BOWMANSophie Blevins is a 79 year old M referred to Physical Therapy by Dr. Dakota Savage MD with a diagnosis of L hip piriformis pain, lumbar DDD. Date of Evaluation: 04/22/25 Physical Therapist: Aryan Coats DPT Visit Plan Frequency: 2x /Week Duration: 4 Weeks Plan: Pt's symptoms do not exactly fall into piriformis syndrome, but also not all of his symptoms fall into lumbar radiculopathy. Pt. has high level of symptoms with walking greater than 30-50'. to the point of needing to sit down. I will try and do some flexion and piriformis stretching to see if this helps. Due to the severity of his symptoms if not improving I will suggest that he return to physician. 1) flexion stretching, L piriformis stretching Subjective Subjective: Pt. is here today for his initial evaluation with diagnosis of L piriformis pain, lumbar DDD. Pt. reports having high levels of pain for 2 weeks. No mech of injury. Pt. reports the only position that he can get comfortable in is in his reclining chair with his L leg brought up towards his chest. Pt. reports pain that starts in his buttock that extends down his L leg to his calf. Pt. reports some N/T at lateral L calf as well. Not much back pain. Pt. reports trying some crossed legged stretching with some light relief, but not much. He has done pain meds which did nothing, he did prednisone which also did not help. Pt. did have an Xray no recent fractures, but did show some DDD. History of R sided hip replacement. Pt. is hopeful to reduce symptoms in order to get back to all household activities without limtiations. Pain R gluteal region: Pain Intensity (Out of 10): 8 Pain Intensity Range: 6 and 10 L calf: Pain Intensity (Out of 10): 3 Pain Intensity Range: 2 and 10 Objective Objective: POSTURE: Pt. has a slight flexed posture. Pt. has slight wt. shift to R side. Pt. is able to correct posture without much change in his symptoms. PALPATION: Pt. has marked tenderness at L gluteal region, L piriformis as well. Pt. was vey tender with palpation of these areas, to the point he is severely guarding. NEURO: Pt. has decreased L lateral calf sensation. Normal DTR throughout BLEs. Pt. is able to rise on heels and toes. ROM: LUMBAR SPINE: flexion nil/min loss mild increase NW. ext mod loss increase NW, SB min loss bilat NE, rotation min loss bilat increase NW to L side. Pt. has marked HS tightness bilat. Pt. has tightness in L hip ER, normal IR. Pt. reports feeling a stretch with hip ER motions. MMT: Pt. has 5/5 distal LE strength. COre strength poor. L hip: abd 4/5 mild increase NW, ER 4/5 mild increase NW. GAIT: Pt. has severe pain with walking greater than 50'+. Pt. had to sit down several times to tolerate walking. He would have minimal pain with initial standing, but severe pain with in 30-50' requiring him to sit. Pt's pain would reduce with in a few minutes. But would return with walking. STAIRS: Pt. has marked increased pain with all attempts. Special Tests Lumbar Standing: Flexion - Mechanical Response: No effect Lumbar Standing: Flexion - Symptoms During Testing: Decreases Lumbar Standing: Flexion - Symptoms After Testing: No better Lumbar Standing: Extension - Mechanical Response: No effect Lumbar Standing: Extension - Symptoms During Testing: Increases Lumbar Standing: Extension - Symptoms After Testing: Worse Lumbar Standing: Right Side Glides - Mechanical Response: No effect Lumbar Standing: Right Side [place] - Symptoms During Testing: No effect Lumbar Standing: Right Side [place] - Symptoms After Testing: No effect Lumbar Standing: Left Side [place] - Mechanical Response: No effect Lumbar Standing: Left Side [place] - Symptoms During Testing: No effect Lumbar Standing: Left Side [place] - Symptoms After Testing: No effect Lumbar Lying: Flexion - Mechanical Response: No effect Lumbar Lying: Flexion - Symptoms During Testing: Decreases Lumbar Lying: Flexion - Symptoms After Testing: Better Lumbar Lying: Extension - Mechanical Response: No effect Lumbar Lying: Extension - Symptoms During Testing: Increases Lumbar Lying: Extension - Symptoms After Testing: Worse Lumbar Static: Slouched Sit - Mechanical Response: No effect Lumbar Static: Slouched Sit - Symptoms During Testing: No effect Lumbar Static: Slouched Sit - Symptoms After Testing: No effect Lumbar Static: Sitting Erect - Mechanical Response: No effect Lumbar Static: Sitti (more content not included)... Normal [facility] HIP, UNI W/ Pelvis 2-3 Views on 04-14-2025 HIP, UNI W/ Pelvis 2-3 Views [facility] [address] [place] [address] HIP, UNI W/ Pelvis 2-3 Views MR#: [id number] Acct: [id number] Name: LYNN TOURE Jr. Rep #: [id number] : 1945 M 79 From: Benedicto ca MD PCP: Dr. Dakota Savage MD Status: REG CLI Study: HIP, UNI W/ Pelvis 2-3 Views Date of Exam: Exam# [id number] Ordering Dr: Dakota Savage PROCEDURE: HIP, UNI W/ PELVIS 2-3 VIEWS 04/14/2025 REASON FOR EXAM: PAIN LEFT TECHNIQUE: Procedure Code: RADHP Modality: DX Procedure: HIP, UNI W/ PELVIS 2-3 VIEWS Laterality: Left hip COMPARISON: None FINDINGS: Bones: No fracture. Joints: Status post right total hip replacement. Moderate degree of joint space narrowing of the left hip joint. No fracture or subluxation. Soft tissues: Vascular calcifications. 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 Reading Location: [facility] CC: Dr. Dakota Savage MD Nuts And Bolts Assembler: Signed Normal [facility] Lumbar Spine 2 or 3 Viewson 04-14-2025 Lumbar Spine 2 or 3 Views [facility] [address] [place] [id number] Lumbar Spine 2 or 3 Views MR#: [id number] Acct: [id number] Name: LYNN TOURE Jr. Rep #: [id number] : 1945 M 79 From: Benedicto ca MD PCP: Dr. Dakota Savage MD Status: REG CLI Study: Lumbar Spine 2 or 3 Views Date of Exam: Exam# [id number] Ordering Dr: Dakota Savage PROCEDURE: LUMBAR SPINE 2 OR 3 VIEWS 04/14/2025 REASON FOR EXAM: PAIN Low back pain and left hip pain. TECHNIQUE: Procedure Code: RADSPLL Modality: DX Procedure: LUMBAR SPINE 2 OR 3 VIEWS COMPARISON: None FINDINGS: Vertebrae: Minimal anterior spondylosis at the L2-L3 and L3-L4 levels. Discs: Mild degree of disc space narrowing at the L2-L3 level. Alignment: No significant scoliosis. Other: Atherosclerotic plaques of the abdominal aorta. RAD/Lumbar Spine 2 or 3 Views IMPRESSION: Mild degree of degenerative changes. Reading Location: [facility] CC: Dr. Dakota Savage MD Nuts And Bolts Assembler: Signed Normal [facility] Anion gap in Serum or Plasma Ordered By: Dakota Savage on 02-11-2025 Anion gap [Moles/Vol] 12 mmol/L 11-11 [facility] BUN/creatinine ratioOrdered By: Dakota Savage on 02-11-2025 Urea nitrogen/Creatinine [Mass ratio] 13.3 mg/mg - [facility] Basic Metabolic Profile (BMP )on 02-11-2025 BUN/CRE 13.3 RATIO Normal - [facility] Comment on above: Performed By: #### L 500.2500, L500.4100 #### [facility] [address] [place], [address] Calcium [Mass/Vol] 9.2 mg/dL Normal 7.6-11.0 [facility] Comment on above: Performed By: #### L 500.2500, L500.4100 #### [facility] [address] [place], [address] Chloride [Moles/Vol] 102 mmol/L Normal 98-108 [facility] Comment on above: Performed By: #### L 500.2500, L500.4100 #### [facility] [address] [place], [address] CO2 [Moles/Vol] 28.2 mmol/L Normal 21.0-32.0 [facility] Comment on above: Performed By: #### L 500.2500, L500.4100 #### [facility] [address] [place], [address] Creatinine [Mass/Vol] 0.96 mg/dL Normal 0.70-1.20 [facility] Comment on above: Performed By: #### L 500.2500, L500.4100 #### [facility] [address] [place], [address] GAP 12 Normal -15 [facility] Comment on above: Performed By: #### L 500.2500, L500.4100 #### [facility] [address] [place], [address] GFR/1.73 sq M.predicted among non-blacks MDRD (S/P/Bld) [Vol rate/Area] 81 mL/min/{1.73_m2} Normal >60 [facility] Comment on above: Result Comment: mL/m in/1.73m2 CKD-EPI Creatinine Equation (2020) Performed By: #### L 500.2500, L500.4100 #### [facility] [address] [place], [address] Glucose [Mass/Vol] 94 mg/dL Normal 70-99 [facility] Comment on above: Performed By: #### L 500.2500, L500.4100 #### [facility] [address] [place], [address] Potassium [Moles/Vol] 3.6 mmol/L Normal 3.3-5.1 [facility] Comment on above: Performed By: #### L 500.2500, L500.4100 #### [facility] [address] [place], [address] Sodium [Moles/Vol] 142 mmol/L Normal 133-145 [facility] Comment on above: Performed By: #### L 500.2500, L500.4100 #### [facility] [address] [place], [address] Urea nitrogen [Mass/Vol] 13 mg/dL Normal 4-19 [facility] Comment on above: Performed By: #### L 500.2500, L500.4100 #### [facility] [address] [place], [address] Calculated very low density lipoprotein (VLDL) cholesterol measurementOrdered By: Dakota Savage on 02-11-2025 Calculated very low density lipoprotein (VLDL) cholesterol measurement 17 mg/dL 5-40 [facility] Carbon dioxide, total [Moles /volume] in Central venous bloodOrdered By: Dakota Savage on 02-11-2025 CO2 [Moles/Vol] 28.2 mmol/L 21.0-32.0 [facility] Chloride assayOrdered By: Fabiola Savage on 02-11-2025 Chloride [Moles/Vol] 102 mmol/L 98-108 [facility] Glomerular filtration rate ( GFR) estimation/1.73 sq m using serum, plasma, or whole bOrdered By: Dakota Savage on 02-11-2025 GFR/1.73 sq M.predicted among non-blacks MDRD (S/P/Bld) [Vol rate/Area] 81 mL/min/{1.73_m2} >60 [facility] Comment on above: mL/min/1.73m2 CKD-EP I Creatinine Equation (2020) LDL calc ser/plasOrdered By: Dakota Savage on 02-11-2025 Cholesterol in LDL [Mass/Vol] 102 mg/dL [facility] Comment on above: Xbfvgtmhkh=485-468 m g/dL & Higher Mzgh=590 mg/dL or greaterFriedwald Equation for LDL-C Lipid Profileon 02-11-2025 CHOL:HDL 3.54 Normal [facility] Comment on above: Performed By: #### L 500.2500, L500.4100 #### [facility] [address] [place], [place], [id number] (292) Cholesterol [Mass/Vol] 165 mg/dL Normal <=200 [facility] Comment on above: Result Comment: Chol esterol level, Desirable <200 mg/dL Borderline high cholesterol 200-239 mg/dL High cholesterol >=240 mg/dL Recommendations of the NCEP Adult Treatment Panel for the following risk-cutoff thresholds for the [place] population. Performed By: #### L 500.2500, L500.4100 #### [facility] [address] [place], [place], [address] Cholesterol in HDL [Mass/Vol] 47 mg/dL Normal [facility] Comment on above: Result Comment: Keisha onal Cholesterol Education Program (NCEP) guidelines: <40 mg/dL: Low HDL-cholesterol (major risk factor for CHD) >= 60 mg/dL: High HDL-cholesterol (negative risk factor for CHD) HDL-cholesterol is affected by a number of factors, e.g. smoking, exercise, hormones, sex and age. Performed By: #### L 500.2500, L500.4100 #### [facility] [address] [place], [address] Cholesterol in LDL [Mass/Vol] 102 mg/dL Normal [facility] Comment on above: Result Comment: Bord rcegvm=416-741 mg/dL Higher Issd=138 mg/dL or greater Friedwald Equation for LDL-C Performed By: #### L 500.2500, L500.4100 #### [facility] [address] [place], [address] Cholesterol in VLDL [Mass/Vol] 17 mg/dL Normal 5-40 [facility] Comment on above: Performed By: #### L 500.2500, L500.4100 #### [facility] [address] [place], [address] Triglyceride [Mass/Vol] 83 mg/dL Normal [facility] Comment on above: Result Comment: The drugs N-Acetylcysteine and Metamizole may falsely depress this assay. Normal range: <150 mg/dL Borderline High: 150-199 mg/dL High: 200-499 mg/dL Very High: >500 mg/dL Performed By: #### L 500.2500, L500.4100 #### [facility] [address] [place], [address] Potassium measurement (mass/ volume)Ordered By: Dakota Savage on 02-11-2025 Potassium (Unsp spec) [Mass/Vol] 3.6 mmol/L 3.3-5.1 [facility] Screening total cholesterol/ high density lipoprotein (HDL) cholesterol ratioOrdered By: Dakota Savage on 02-11-2025 Cholesterol.total/Chol esterol in HDL [Mass ratio] 3.54 {ratio} [facility] Serum creatinine measurement (mass/volume)Ordered By: Dakota Savage on 02-11-2025 Creatinine [Mass/Vol] 0.96 mg/dL 0.70-1.20 [facility] Serum glucose measurement (m ass/volume)Ordered By: Dakota Savage on 02-11-2025 Glucose [Mass/Vol] 94 mg/dL 70-99 [facility] Serum or plasma calcium wilton urement (mass/volume)Ordered By: Dakota Savage on 02-11-2025 Calcium [Mass/Vol] 9.2 mg/dL 7.6-11.0 [facility] Serum or plasma cholesterol in HDL measurement (mass/volume)Ordered By: Dakota Savage on 02-11-2025 Cholesterol in HDL [Mass/Vol] 47 mg/dL >40 [facility] Comment on above: National Cholesterol Education Program (NCEP) guidelines:<40 mg/dL: Low HDL-cholesterol (major risk factor for CHD)>= 60 mg/dL: High HDL-cholesterol (negative risk factor for CHD)HDL-cholesterol is affected by a number of factors, e.g. smoking, exercise, hormones, sex and age. Serum or plasma cholesterol measurement (mass/volume)Ordered By: Dakota Savage on 02-11-2025 Cholesterol [Mass/Vol] 165 mg/dL <201 [facility] Comment on above: Cholesterol level, D esirable <200 mg/dLBorderline high cholesterol 200-239 mg/dLHigh cholesterol >=240 mg/dLRecommendations of the NCEP Adult Treatment Panel for the following risk-cutoff thresholds for the [place] population. Serum or plasma urea nitroge n measurement (mass/volume)Ordered By: Dakota Savage on 02-11-2025 Urea nitrogen [Mass/Vol] 13 mg/dL 4-19 [facility] Sodium levelOrdered By: [place] Savage on 02-11-2025 Sodium [Moles/Vol] 142 mmol/L 133-145 [facility] Triglycerides measurementOrd ered By: Dakota Savage on 02-11-2025 Triglyceride [Mass/Vol] 83 mg/dL <199 [facility] Comment on above: The drugs N-Acetylcy steine and Metamizole may falsely depress this assay. Normal range: <150 mg/dLBorderline High: 150-199 mg/dLHigh: 200-499 mg/dLVery High: >500 mg/dL Basophil percentageOrdered B y: Dr. Savage on 08-01-2022 Chloride [Moles/Vol] 105 mmol/L 98-107 [facility] Glucose [Mass/Vol] 89 mg/dL 74-106 [facility] Potassium [Moles/Vol] 3.7 mmol/L 3.5-5.1 [facility] Sodium [Moles/Vol] 142 mmol/L 136-145 [facility] Laboratory - Chemistry and C hemistry - challengeOrdered By: Dr. Savage on 08-01-2022 CO2 [Moles/Vol] 29.0 mmol/L 21.0-32.0 [facility] [facility] Urea nitrogen/Creatinine [Mass ratio] 13.7 mg/mg 10-20 [facility] No Panel InformationOrdered By: Dr. Savage on 08-01-2022 Estimated GFR (MDRD) Amer 99 mL/min >60 [facility] Comment on above: GFR Calc Estimated GFR (MDRD) Non-Af Amer 82 mL/min >60 [facility] Comment on above: Non- GFR Calc Hepatitis C Antibody Non-Reactive Nonreactive [facility] Comment on above: Non Reactive: < 0.8 Equivocal: >/= 0.8 to < 1.0 Reactive: >/= 1.0The CDC recommends that a reactive/equivocal HCV antibody result be followed up by the HCV Nucleic Acid Amplificationtest (268177) Serum or plasma calcium w[place] urement (mass/volume)Ordered By: Dr. Savage on 08-01-2022 Calcium [Mass/Vol] 8.8 mg/dL 8.5-10.1 [facility] Serum or plasma creatinine m easurement (mass/volume)Ordered By: Dr. Savage on 08-01-2022 Creatinine [Mass/Vol] 0.95 mg/dL 0.70-1.30 [facility] Comment on above: The validity of the calculated GFR & GFRAA in patients over 70 years has not been determined. Clinical correlation is essential. Serum or plasma urea nitroge n measurement (mass/volume)Ordered By: Dr. Savage on 08-01-2022 Urea nitrogen [Mass/Vol] 13 mg/dL 7-18 [facility] Thin prep Papanicolaou smear with manual screeningOrdered By: Dr. Savage on 08-01-2022 Thin prep Papanicolaou smear with manual screening 8 5-15 [facility] Final Surgical Pathology Rep [facility] 08-27-2018 Final Surgical Pathology Report . Pathology Reports Accession: Collected Date/Time: Received Date/Time: Pathologist: [id number] 08/25/2018 13:50 EST 08/26/2018 14:22 EST DO DAVE LEUNG Final Surgical Pathology Report DIAGNOSIS: SKIN EXCISION, UPPER CHEST -- SOLAR LENTIGO. COMMENT: [facility] [place] [id number] CLINICAL INFORMATION: NEOPLASM OF UNCERTAIN BEHAVIOR OF SKIN SPECIMEN: A SKIN- UPPER CHEST LESION GROSS DESCRIPTION: Received in formalin labeled chest is a 0.2 cm dark brown circular skin which has been excised to a greatest depth of 0.2 cm. No discrete lesion is identified. The specimen is inked and submitted in toto in one cassette. Dictated by Izabella SHEN ([facility]) MICROSCOPIC DESCRIPTION: Slides reviewed. Electronically Signed by Pathology Report verified by [facility] Electronically signed by DAVE LEUNG DO Sign out Date: 08/27/2018 13:12 Performing Lab: [address] Normal [facility] ([place]) Comment on above: Performed By: #### S PFR #### [place] [address] [place] 10-09-2017 Potassium molar conc 3.8 mmol/L Normal 3.5-5.1 [facility] ([place]) Comment on above: Performed By: #### K #### [address] [address] XR WRIST COMPLETE RIGHTon XR WRIST COMPLETE [...] PM Sign Date: 01/06/2017 12:02:38 PM Normal [facility] Encounters Encounter Date Encounter Type Care Provider Facility Start: 05-18-2025 ambulatory Dakota Mayer lity:[facility] Start: 04-25-2025 ambulatory Dakota Mayer lity:[facility] Start: 04-14-2025 End: 04-14-2025 ambulatory Dakota Fernandoimelda Facility:[facility] Start: 02-11-2025 End: 02-11-[address] Dakota Savage MD Work Phone: -[facility] Start: 02-11-2025 End: 02-11-[address] Dakota Savage MD -[facility] Work Phone: Start: 02-11-2025 End: 02-11-2025 ambulatory Dakota Savage Facility:[facility] Start: 08-01-2022 End: 08-01-2022 ambulatory [facility] Work Phone: Start: 08-01-2022 End: 08-01-2022 Patient encounter procedure [facility] Start: 08-25-2018 End: 08-30-2018 Patient encounter procedure TOBI BELLA Facility:B Start: 10-09-2017 End: 10-10-2017 Patient encounter procedure TOBI BELLA Facility:[facility] Start: 01-06-2017 End: 01-07-2017 Ambulatory TOBI FORT LEE Facility:[facility] Immunizations Immunization Date Immunization Notes Care Provider [facility] 03-30-2017 influenza, injectabl e, quadrivalent, preservative free Dr. Dakota Savage MD Work Phone: [facility] 03-30-2017 influenza, seasonal, injectable [facility] Payers Date Payer Category Payer Self-pay [id number] 2016 Medicare [id number] 1945 Unknown [id number] 1945 Unknown [id number] [id number] Unknown [id number] 2.16.8 [id number] Unknown [id number] 2.16.8 [id number] Unknown [id number] 2.16.8 [id number] Unknown [id number] 2.16.8 [id number] Social History Date Type Detail Facility Start: 05-19-2017 Tobacco smoking stat [facility] Unknown if ever smoked [facility] Start: 1945 Sex Assigned At Male [facility] Start: 05-19-2017 Tobacco smoking stat [facility] Ex-smoker (finding) [facility] Medical Equipment Procedure Code Equipment Code Equipment Origin al Text Equipment Identifier Dates COLLARLESS POROU S STEM FDA Start: 06-10-2017 MODULAR HEAD COMPONENT FDA Start: 06-10-2017 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 Start: 06-10-2017 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 FDA Start: 06-10-2017 COLLARLESS POROU S STEM FDA Start: 06-10-2017 MODULAR HEAD COMPONENT FDA Start: 06-10-2017 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 Start: 06-10-2017 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 FDA Start: 06-10-2017 Evaluation note Note Date & Type Note Facility Evaluation note No assessment information availa [facility] Work Phone: Reason for referral (narrative) Note Date & Type Note Facility Reason for referral (narrative) No reason for referral information available [facility] Work Phone: Summary Purpose Family History No Family History Records FoundNo Family History Records FoundNo Family History Records Found Advance Directives No Advanced Directives Records Found Advance Directive Response Recorded Date/ Time Advance Directives Yes November 18 12:16pm Living Will Yes June 11 017 11:13am Power of Safety Scientist Yes 2017 11:13am Advance Directive Response Recorded Date/ Time Advance Directives Yes November 18 5 1:16pm Additional Source Comments (unrecognized sect ion and content) No Status Records FoundNo Status Records FoundNo Status Records Found INFORMATION SOURCE (unrecogn ized section and content) DATE CREATED AUTHOR 12/24/2017 [place] [employer] DATE CREATED AUTHOR AUTHOR'S ORGANIZ ATION 08/31/2018 [place] [employer] ([place]) DATE CREATED AUTHOR AUTHOR'S ORGANIZ ATION 05/12/2025 [facility] Care Teams (unrecognized sec tion and content) Team Status: Active Member Role Status Dates Dr. Teo Savage MD Family Provider Active Dr. Teo Savage MD Primary Care Provider Activ e Team Status: Inactive Member Role Status Dates Dr. Teo Savage MD Primary Care Provider, Attending Provider, Referring Provider Active Team Status: Active Member Role/Relationship Status Dates Dr. Dakota Savage MD Family Provider Active Dr. Dakota Savage MD Primary Care Provider Acti ve Team Status: Inactive Member Role/Relationship Status Dates Dr. Dakota Savage MD Primary Care Provider Acti ve Start: February 11, 2025 End: February 11, 2025 Dr. Dakota Savage MD Attending Provider Active Start: February 11, 2025 End: February 11, 2025 Dr. Dakota Savage MD Referring Provider Active Start: February 11, 2025 End: February 11, 2025 Goals (unrecognized section and content) Goals may be documented in a n alternate sectionGoals may be documented in an alternate section FOR RECORDS PERTAINING TO PATIENTS [...] BE BASED ON THE PRIMARY CLINICAL RECORDS. [employer] provides no warranty or guarantee of the accuracy or completeness of information in this document.
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
--- NOTE | 2025-05-18 07:41 | MRI_ITS ---
PROCEDURE: SPINE LUMBAR (ROUTINE) 05/18/2025 REASON FOR EXAM: LUMBAGO WITH SCIATICA Low back pain. TECHNIQUE: Procedure Code: MRISPL Modality: MR Procedure: SPINE LUMBAR (ROUTINE) COMPARISON: None FINDINGS: T11-L1: Vertebral bodies: Negative. Disk Space: Negative. Negative for Modic changes. Facet Joints: Negative for bilateral facet joint hypertrophy. Neural foramina: Negative for neural foraminal narrowing Spinal Canal: Negative for central spinal narrowing. L1-2: Vertebral bodies: Negative. Disk Space: Negative. Negative for Modic changes. Facet Joints: Negative for bilateral facet joint hypertrophy. Neural foramina: Negative for neural foraminal narrowing Spinal Canal: Negative for subarticular zone narrowing. Negative for central spinal narrowing. L2-3: Vertebral bodies: Negative. Disk Space: Disc desiccation. Mild loss of disc height. Negative for Modic changes. Facet Joints: Mild bilateral facet joint hypertrophy. Neural foramina: Negative for neural foraminal narrowing Spinal Canal: Negative for subarticular zone narrowing. Negative for central spinal narrowing. L3-4: Vertebral bodies: Negative. Disk Space: Disc desiccation. Mild loss of disc height. Negative for Modic changes. Facet Joints: Mild bilateral bilateral facet joint hypertrophy. Neural foramina: Negative for neural foraminal narrowing Spinal Canal: Negative for subarticular zone narrowing. Negative for central spinal narrowing. L4-5: Vertebral bodies: Negative. Disk Space: Disc desiccation mild loss of disc height. Mild diffuse disc bulge. Negative for Modic changes. Facet Joints: Moderate bilateral facet joint hypertrophy. Neural foramina: [id number] bilateral neural foraminal narrowing Spinal Canal: Negative for subarticular zone narrowing. Negative for central spinal narrowing. L5-S1: Vertebral bodies: Negative. Disk Space: Negative. Negative for Modic changes. Facet Joints: Moderate bilateral facet joint hypertrophy. Neural foramina: Mild bilateral neural foraminal narrowing Spinal Canal: Negative for subarticular zone narrowing. Negative for central spinal narrowing. Vertebrae: Diffuse bone marrow replacement noted. Extends into the pelvis. Conus Medullaris: Spinal cord is normal and ends at L1-L2. Imaged kidneys aorta otherwise negative. The remainder of the exam negative. MRI/Spine Lumbar (Routine) IMPRESSION: Early degenerative changes lumbar spine. Diffuse bone marrow replacement. Correlate clinically for chronic anemia or my eloproliferative disease such as multiple myeloma. Reading Location: [id number]
== END | disposition home or self-care (01) ==
LOC: MRI 06:44
PROVIDERS: PCP Family Medicine; Referring Provider Family Medicine; Visit Provider Family Medicine
DX: M54.40 Lumbago with sciatica, unspecified side (principal)
CPT/HCPCS: 70030; 72148

== ENCOUNTER → 2025-06-01 | Outpatient (CLI) | payer MEDICARE, SELFPAY ==
[2025-06-01 12:44] LABS: Hematocrit 32.6 % (40-54); Hemoglobin 11.1 g/dL (13.0-16.5); Immature Granulocytes Count 0.020 X10^3/uL (0.0-0.0); Immature Platelet Fraction 3.1 % (1.0-7.9); Immature Reticulocyte Fraction 13.90 % (3.00-15.90); Mean Corp Hgb Conc 34.0 g/dL (32-36); Mean Corpuscular Volume 94.5 fL (80-94); Mean Platelet Vol. 10.9 fl (6.2-12.0); NRBC Flagged by Analyzer 0 % (0-5); POSITIVE MORPHOLOGY YES; Platelet Count 325 K/mm3 (150-450); RBC Distribution Width CV 19.5 % (11.6-14.6); RBC Distribution Width SD 68.1 fl (35.1-43.9); Red Blood Count 3.45 M/mm3 (4.6-6.2); Reticulocyte Count 1.24 % (0.5-1.5); White Blood Count 5.0 K/mm3 (4.4-11.0)
[2025-06-01 12:51] LABS: Differential Indicated SCAN CRITERIA MET
[2025-06-01 13:07] LABS: Ferritin 721 ng/mL (37-417)
[2025-06-01 13:09] LABS: Anisocytosis 2+; Differential Comment SCANNED; Macrocytosis 2+
[2025-06-01 13:50] LABS: CRP < 3.00 mg/L (0.0-3.0); Iron 195 ug/dL (65-175); Iron Binding Capacity,Unsat 19 ug/dL (228-428)
[2025-06-01 18:40] LABS: Iron Binding Capacity,Total 214 ug/dL (250-450)
[2025-06-02 14:08] LABS: PROEL- A/G Ratio 1.2 (0.7-1.7); PROEL- Albumin 3.6 g/dL (2.9-4.4); PROEL- Alpha-1 Globulin 0.2 g/dL (0.0-0.4); PROEL- Alpha-2 Globulin 0.6 g/dL (0.4-1.0); PROEL- Beta Globulin 0.8 g/dL (0.7-1.3); PROEL- Gamma Globulin 1.4 g/dL (0.4-1.8); PROEL- Globulin, Total 3.0 g/dL (2.2-3.9); PROEL- TOTAL PROTEIN 6.6 g/dL (6.0-8.5); PROEL-M-Spike Not Observed g/dL (Not Observed)
== END | disposition home or self-care (01) ==
LOC: MFPLAB 10:45
PROVIDERS: PCP Family Medicine; Visit Provider Family Medicine
DX: M54.40 Lumbago with sciatica, unspecified side (principal)
CPT/HCPCS: 36415; 82728; 83540; 83550; 84165; 85025; 85045; 85652; 86140

== ENCOUNTER → 2025-06-07 | Outpatient (CLI) | payer MEDICARE, SELFPAY ==
--- OUTSIDE RECORDS SUMMARY | 2025-06-07 14:48 | XMS RPT_ITS | CCD ---
Author Organization [facility] Inform ion Partnership [facility] Care Team Providers Care Education Dean Name Role Phone TOBI BELLA Unavailable Unavailable TOBI BELLA Unavailable TOBI BELLA Attending Unavailable TOBI BELLA Primary Care Unavailable TOBI BELLA Attending Unavailable TOBI BELLA Primary Care Unavailable Hussein HUDSON, Dr. Duncan Primary Care Provider Hussein HUDSON, Dr. Duncan Attending Provider Hussein HUDSON, Dr. Duncan Referring Provider Dakota Savage Referring Unavailable Dakota Savage Primary [...] (2 sources) Etodolac Drug Allergy 2017 Other [facility] Comment on above: increases BP (1 source) Etodolac Drug Allergy 2017 [facility] Repository Medications Current Medications Medication Drug Class(es) [...] Active 1000 MG PO EVERY 8 HOURS 30 June 12, 2017 12:00am Start: 05-19-2017 End: [...] - PT (1)on Re-Evaluation - PT (1) [facility] [address] [place] [address] / REEVALUATION / MEDICARE RECERTIFICATION PHYSICAL THERAPY MR#: [id number] Acct: [id number] Name: LYNN TOURE JrYael Rep #: [id number] : 1945 79 From: Aryan Coats DPT [...] do not hesitate to contact me at [phone] by phone or if you have questions or concerns regarding this new plan of care! Sincerely, Aryan Coats DPT 05/02/25 1236 CC: Dr. Dakota Savage MD CLS Signed For Medicare only, by signing this I certify the plan of care. Physicians Signature Date Normal [facility] Inital Evaluation (1) - PTon 04-25-2025 Inital Evaluation (1) - PT [facility] [address] [place] [address] / REHABILITATION SERVICES INITIAL EVALUATION MR#: [id number] Acct: [id number] Name: MESFINLYNN Keri Blevins Rep #: [id number] : 1945 79 From: Aryan Coats DPT [...] Response: No effect Lumbar Standing: Right Side [place] - Symptoms During Testing: No effect Lumbar Standing: Right Side [place] - Symptoms After Testing: No effect Lumbar Standing: Left Side [place] - Mechanical Response: No effect Lumbar Standing: Left Side [place] - Symptoms During Testing: No effect Lumbar Standing: Left Side [place] - Symptoms After Testing: No effect Lumbar [...] Static: Sitti (more content not included)... Normal [facility] HIP, UNI W/ Pelvis 2-3 Views on 04-14-2025 HIP, UNI W/ Pelvis 2-3 Views [facility] [address] [place] [address] HIP, UNI W/ Pelvis 2-3 Views MR#: [id number] Acct: [id number] Name: LYNN TOURE Jr. Rep #: [id number] : 1945 M 79 From: Benedicto ca MD PCP: Dr. Dakota Savage MD Status: REG CLI Study: HIP, UNI W/ Pelvis 2-3 Views Date of Exam: Exam# [id number] Ordering Dr: Dakota Savage PROCEDURE: HIP, UNI [...] right total hip replacement. Reading Location: [facility] CC: Dr. Dakota Savage MD Tmd Teacher: Signed Normal [facility] Lumbar Spine 2 or 3 Viewson 04-14-2025 Lumbar Spine 2 or 3 Views [facility] [address] [place] [id number] Lumbar Spine 2 or 3 Views MR#: [id number] Acct: [id number] Name: LYNN TOURE Jr. Rep #: [id number] : 1945 M 79 From: Benedicto ca MD PCP: Dr. Dakota Savage MD Status: REG CLI Study: Lumbar Spine 2 or 3 Views Date of Exam: Exam# [id number] Ordering Dr: Dakota Savage PROCEDURE: LUMBAR SPINE [...] degree of degenerative changes. Reading Location: [facility] CC: Dr. Dakota Savage MD Tmd Teacher: Signed Normal [facility] Anion gap in Serum or Plasma Ordered By: Dakota Savage on 02-11-2025 Anion gap [Moles/Vol] 12 mmol/L 11-11 [facility] BUN/creatinine ratioOrdered By: Dakota Savage on 02-11-2025 Urea nitrogen/Creatinine [Mass ratio] 13.3 mg/mg - [facility] Basic Metabolic Profile (BMP )on 02-11-2025 BUN/CRE 13.3 RATIO Normal - [facility] Comment on above: Performed By: #### L 500.2500, L500.4100 #### [facility] [address] [place], [address] Calcium [Mass/Vol] 9.2 mg/dL Normal 7.6-11.0 [facility] Comment on above: Performed By: #### L 500.2500, L500.4100 #### [facility] [address] [place], [address] Chloride [Moles/Vol] 102 mmol/L Normal 98-108 [facility] Comment on above: Performed By: #### L 500.2500, L500.4100 #### [facility] [address] [place], [address] CO2 [Moles/Vol] 28.2 mmol/L Normal 21.0-32.0 [facility] Comment on above: Performed By: #### L 500.2500, L500.4100 #### [facility] [address] [place], [address] Creatinine [Mass/Vol] 0.96 mg/dL Normal 0.70-1.20 [facility] Comment on above: Performed By: #### L 500.2500, L500.4100 #### [facility] [address] [place], [address] GAP 12 Normal -15 [facility] Comment on above: Performed By: #### L 500.2500, L500.4100 #### [facility] [address] [place], [address] GFR/1.73 sq M.predicted among non-blacks MDRD (S/P/Bld) [Vol rate/Area] 81 mL/min/{1.73_m2} Normal >60 [facility] Comment on above: Result Comment: mL/m in/1.73m2 CKD-EPI Creatinine Equation (2020) Performed By: #### L 500.2500, L500.4100 #### [facility] [address] [place], [address] Glucose [Mass/Vol] 94 mg/dL Normal 70-99 [facility] Comment on above: Performed By: #### L 500.2500, L500.4100 #### [facility] [address] [place], [address] Potassium [Moles/Vol] 3.6 mmol/L Normal 3.3-5.1 [facility] Comment on above: Performed By: #### L 500.2500, L500.4100 #### [facility] [address] [place], [address] Sodium [Moles/Vol] 142 mmol/L Normal 133-145 [facility] Comment on above: Performed By: #### L 500.2500, L500.4100 #### [facility] [address] [place], [address] Urea nitrogen [Mass/Vol] 13 mg/dL Normal 4-19 [facility] Comment on above: Performed By: #### L 500.2500, L500.4100 #### [facility] [address] [place], [address] Calculated very low density lipoprotein (VLDL) cholesterol measurementOrdered By: Dakota Savage on 02-11-2025 Calculated very low density lipoprotein (VLDL) cholesterol measurement 17 mg/dL 5-40 [facility] Carbon dioxide, total [Moles /volume] in Central venous bloodOrdered By: Dakota Savage on 02-11-2025 CO2 [Moles/Vol] 28.2 mmol/L 21.0-32.0 [facility] Chloride assayOrdered By: Fabiola Savage on 02-11-2025 Chloride [Moles/Vol] 102 mmol/L 98-108 [facility] Glomerular filtration rate ( GFR) estimation/1.73 sq m using serum, plasma, or whole bOrdered By: Dakota Savage on 02-11-2025 GFR/1.73 sq M.predicted among non-blacks MDRD (S/P/Bld) [Vol rate/Area] 81 mL/min/{1.73_m2} >60 [facility] Comment on above: mL/min/1.73m2 CKD-EP I Creatinine Equation (2020) LDL calc ser/plasOrdered By: Dakota Savage on 02-11-2025 Cholesterol in LDL [Mass/Vol] 102 mg/dL [facility] Comment on above: Mbkfwfrmbd=833-482 m g/dL & Higher Ranm=105 mg/dL or greaterFriedwald Equation for LDL-C Lipid Profileon 02-11-2025 CHOL:HDL 3.54 Normal [facility] Comment on above: Performed By: #### L 500.2500, L500.4100 #### [facility] [address] [place], [place], [id number] (809) Cholesterol [Mass/Vol] 165 mg/dL Normal <=200 [facility] Comment on above: Result Comment: Chol esterol level, Desirable <200 mg/dL Borderline high cholesterol 200-239 mg/dL High cholesterol >=240 mg/dL Recommendations of the NCEP Adult Treatment Panel for the following risk-cutoff thresholds for the [place] population. Performed By: #### L 500.2500, L500.4100 #### [facility] [address], [place], [address] Cholesterol in HDL [Mass/Vol] 47 mg/dL Normal [facility] Comment on above: Result Comment: Keisha onal Cholesterol Education Program (NCEP) guidelines: <40 mg/dL: Low HDL-cholesterol (major risk factor for CHD) >= 60 mg/dL: High HDL-cholesterol (negative risk factor for CHD) HDL-cholesterol is affected by a number of factors, e.g. smoking, exercise, hormones, sex and age. Performed By: #### L 500.2500, L500.4100 #### [facility] [address] [place], [address] Cholesterol in LDL [Mass/Vol] 102 mg/dL Normal [facility] Comment on above: Result Comment: Bord wytmjk=096-731 mg/dL Higher Oveh=755 mg/dL or greater Friedwald Equation for LDL-C Performed By: #### L 500.2500, L500.4100 #### [facility] [address] [place], [address] Cholesterol in VLDL [Mass/Vol] 17 mg/dL Normal 5-40 [facility] Comment on above: Performed By: #### L 500.2500, L500.4100 #### [facility] [address] [place], [address] Triglyceride [Mass/Vol] 83 mg/dL Normal [facility] Comment on above: Result Comment: The drugs N-Acetylcysteine and Metamizole may falsely depress this assay. Normal range: <150 mg/dL Borderline High: 150-199 mg/dL High: 200-499 mg/dL Very High: >500 mg/dL Performed By: #### L 500.2500, L500.4100 #### [facility] [address] [place], [address] Potassium measurement (mass/ volume)Ordered By: Dakota Savage on 02-11-2025 Potassium (Unsp spec) [Mass/Vol] 3.6 mmol/L 3.3-5.1 [facility] Screening total cholesterol/ high density lipoprotein (HDL) cholesterol ratioOrdered By: Dakota Savage on 02-11-2025 Cholesterol.total/Chol esterol in HDL [Mass ratio] 3.54 {ratio} [facility] Serum creatinine measurement (mass/volume)Ordered By: Dakota Savage on 02-11-2025 Creatinine [Mass/Vol] 0.96 mg/dL 0.70-1.20 [facility] Serum glucose measurement (m ass/volume)Ordered By: Dakota Savage on 02-11-2025 Glucose [Mass/Vol] 94 mg/dL 70-99 [facility] Serum or plasma calcium wilton urement (mass/volume)Ordered By: Dakota Savage on 02-11-2025 Calcium [Mass/Vol] 9.2 mg/dL 7.6-11.0 [facility] Serum or plasma cholesterol in HDL measurement (mass/volume)Ordered By: Dakota Savage on 02-11-2025 Cholesterol in HDL [Mass/Vol] 47 mg/dL >40 [facility] Comment on above: National Cholesterol Education Program (NCEP) guidelines:<40 mg/dL: Low HDL-cholesterol (major risk factor for CHD)>= 60 mg/dL: High HDL-cholesterol (negative risk factor for CHD)HDL-cholesterol is affected by a number of factors, e.g. smoking, exercise, hormones, sex and age. Serum or plasma cholesterol measurement (mass/volume)Ordered By: Dakota Savage on 02-11-2025 Cholesterol [Mass/Vol] 165 mg/dL <201 [facility] Comment on above: Cholesterol level, D esirable <200 mg/dLBorderline high cholesterol 200-239 mg/dLHigh cholesterol >=240 mg/dLRecommendations of the NCEP Adult Treatment Panel for the following risk-cutoff thresholds for the [place] population. Serum or plasma urea nitroge n measurement (mass/volume)Ordered By: Dakota Savage on 02-11-2025 Urea nitrogen [Mass/Vol] 13 mg/dL 4-19 [facility] Sodium levelOrdered By: [place] Savage on 02-11-2025 Sodium [Moles/Vol] 142 mmol/L 133-145 [facility] Triglycerides measurementOrd ered By: Dakota Savage on 02-11-2025 Triglyceride [Mass/Vol] 83 mg/dL <199 [facility] Comment on above: The drugs N-Acetylcy steine and Metamizole may falsely depress this assay. Normal range: <150 mg/dLBorderline High: 150-199 mg/dLHigh: 200-499 mg/dLVery High: >500 mg/dL Basophil percentageOrdered B y: Dr. Savage on 08-01-2022 Chloride [Moles/Vol] 105 mmol/L 98-107 [facility] Glucose [Mass/Vol] 89 mg/dL 74-106 [facility] Potassium [Moles/Vol] 3.7 mmol/L 3.5-5.1 [facility] Sodium [Moles/Vol] 142 mmol/L 136-145 [facility] Laboratory - Chemistry and C hemistry - challengeOrdered By: Dr. Savage on 08-01-2022 CO2 [Moles/Vol] 29.0 mmol/L 21.0-32.0 [facility] Urea nitrogen/Creatinine [Mass ratio] 13.7 mg/mg 10-20 [facility] No Panel InformationOrdered By: Dr. Savage on 08-01-2022 Estimated GFR (MDRD) Amer 99 mL/min >60 [facility] Comment on above: GFR Calc Estimated GFR (MDRD) Non-Af Amer 82 mL/min >60 [facility] Comment on above: Non- GFR Calc Hepatitis C Antibody Non-Reactive Nonreactive [facility] Comment on above: Non Reactive: < 0.8 Equivocal: >/= 0.8 to < 1.0 Reactive: >/= 1.0The CDC recommends that a reactive/equivocal HCV antibody result be followed up by the HCV Nucleic Acid Amplificationtest (596952) Serum or plasma calcium wilton urement (mass/volume)Ordered By: Dr. Savage on 08-01-2022 Calcium [Mass/Vol] 8.8 mg/dL 8.5-10.1 [facility] Serum or plasma creatinine m easurement (mass/volume)Ordered By: Dr. Savage on 08-01-2022 Creatinine [Mass/Vol] 0.95 mg/dL 0.70-1.30 [facility] Comment on above: The validity of the calculated GFR & GFRAA in patients over 70 years has not been determined. Clinical correlation is essential. Serum or plasma urea nitroge n measurement (mass/volume)Ordered By: Dr. Savage on 08-01-2022 Urea nitrogen [Mass/Vol] 13 mg/dL 7-18 [facility] Thin prep Papanicolaou smear with manual screeningOrdered By: Dr. Savage on 08-01-2022 Thin prep Papanicolaou smear with manual screening 8 5-15 [facility] Final Surgical Pathology Rep [facility] 08-27-2018 Final Surgical Pathology Report . Pathology Reports Accession: Collected Date/Time: Received Date/Time: Pathologist: [id number] 08/25/2018 13:50 EST 08/26/2018 14:22 EST DO DAVE LEUNG Final Surgical Pathology Report DIAGNOSIS: SKIN EXCISION, UPPER CHEST -- SOLAR LENTIGO. COMMENT: [facility] [place] [id number] CLINICAL INFORMATION: NEOPLASM OF UNCERTAIN BEHAVIOR OF SKIN SPECIMEN: A SKIN- UPPER CHEST LESION GROSS DESCRIPTION: Received in formalin labeled chest is a 0.2 cm dark brown circular skin which has been excised to a greatest depth of 0.2 cm. No discrete lesion is identified. The specimen is inked and submitted in toto in one cassette. Dictated by Izabella SHEN ([facility]) MICROSCOPIC DESCRIPTION: Slides reviewed. Electronically Signed by Pathology Report verified by [facility] Electronically signed by DAVE LEUNG DO Sign out Date: 08/27/2018 13:12 Performing Lab: [address] Normal [facility] ([place]) Comment on above: Performed By: #### S PFR #### [place] [address] [place] 10-09-2017 Potassium molar conc 3.8 mmol/L Normal 3.5-5.1 [facility] ([place]) Comment on above: Performed By: #### K #### [address] [address] XR WRIST COMPLETE RIGHTon XR WRIST COMPLETE [...] PM Sign Date: 01/06/2017 12:02:38 PM Normal [facility] Encounters Encounter Date Encounter Type Care Provider Facility Start: 05-18-2025 ambulatory Dakota Mayer lity:[facility] Start: 04-25-2025 ambulatory Dakota Mayer lity:[facility] Start: 04-14-2025 End: 04-14-2025 ambulatory Dakota Fernandoimelda Facility:[facility] Start: 02-11-2025 End: 02-11-[address] Dakota Savage MD Work Phone: -[facility] Start: 02-11-2025 End: 02-11-[address] Dakota Savage MD -[facility] Work Phone: Start: 02-11-2025 End: 02-11-2025 ambulatory Dakota Savage Facility:[facility] Start: 08-01-2022 End: 08-01-2022 ambulatory [facility] Work Phone: Start: 08-01-2022 End: 08-01-2022 Patient encounter procedure [facility] Start: 08-25-2018 End: 08-30-2018 Patient encounter procedure TOBI BELLA Facility:B Start: 10-09-2017 End: 10-10-2017 Patient encounter procedure TOBI BELLA Facility:[facility] Start: 01-06-2017 End: 01-07-2017 Ambulatory TOBI KILBOURNE Facility:[facility] Immunizations Immunization Date Immunization Notes Care Provider [facility] 03-30-2017 influenza, injectabl e, quadrivalent, preservative free Dr. Dakota Savage MD Work Phone: [facility] 03-30-2017 influenza, seasonal, injectable [facility] Payers Date Payer Category Payer Self-pay [id number] 2016 Medicare [id number] 1945 Unknown [id number] 2.16.8 [id number] 1945 Unknown [id number] 2.16.8 [id number] Unknown [id number] 2.16.8 [id number] Unknown [id number] 2.16.8 [id number] Unknown [id number] 2.16.8 [id number] Unknown [id number] 2.16.8 [id number] Social History Date Type Detail Facility Start: 05-19-2017 Tobacco smoking stat [facility] Unknown if ever smoked [facility] Start: 1945 Sex Assigned At Male [facility] Start: 05-19-2017 Tobacco smoking stat [facility] Ex-smoker (finding) [facility] Medical Equipment Procedure Code Equipment Code Equipment [...] Facility Evaluation note No assessment information availa [facility] Work Phone: Reason for referral (narrative) Note Date & Type Note Facility Reason for referral (narrative) No reason for referral information available [facility] Work Phone: Summary Purpose Family History No Family History Records FoundNo Family History Records FoundNo Family History Records Found Advance Directives No Advanced Directives Records Found Advance Directive Response Recorded Date/ Time Advance Directives Yes November 18 12:16pm Living Will Yes June 11 017 11:13am Power of Code Inspector Yes 2017 11:13am Advance Directive Response Recorded Date/ Time Advance Directives Yes November 18 5 1:16pm Additional Source Comments (unrecognized sect ion and content) No Status Records FoundNo Status Records FoundNo Status Records Found INFORMATION SOURCE (unrecogn ized section and content) DATE CREATED AUTHOR 12/24/2017 [employer] DATE CREATED AUTHOR AUTHOR'S ORGANIZ ATION 08/31/2018 [employer] ([place]) DATE CREATED AUTHOR AUTHOR'S ORGANIZ ATION 05/12/2025 [facility] Care Teams (unrecognized sec tion and content) [...] BE BASED ON THE PRIMARY CLINICAL RECORDS. [employer] provides no warranty or guarantee of the accuracy or completeness of information in this document.
[2025-06-07 15:51] LABS: AST(SGOT) 27 U/L (<=37); Alanine Aminotransfer ALT/SGPT 15 U/L (<=46); Albumin, Serum 4.2 g/dL (3.4-4.8); Alkaline Phosphatase 48 U/L (40-129); Anion Gap 11 (5-15); BUN 13 mg/dL (4-19); BUN/Creat Ratio 16.2 RATIO (10-20); Calcium,Total 9.2 mg/dL (7.6-11.0); Carbon Dioxide 26.1 mmol/L (21.0-32.0); Chloride 101 mmol/L (98-108); Globulin 2.9 g/dL (2.2-4.2); Glucose 93 mg/dL (70-99); Potassium 3.6 mmol/L (3.3-5.1)
== END | disposition home or self-care (01) ==
LOC: MFPLAB 11:36
PROVIDERS: PCP Family Medicine; Visit Provider Family Medicine
DX: I10 Essential (primary) hypertension (principal)
CPT/HCPCS: 36415; 80053